=== PATIENT | female | born 1965 | race Caucasian/White ===

== ENCOUNTER 2020-08-11 10:20 | Emergency (ER) | payer OTHER ==
[~2020-08-11] VITALS: Ht 162.6 cm; Wt 90.9 kg
[2020-08-11] MEDS ORDERED: AZIT-21 PO (12:08)
== END 2020-08-11 12:35 | disposition home or self-care (01) ==
LOC: ER 10:21
DX: U07.1 COVID-19 (principal); J12.89 Other viral pneumonia; R05 Cough; J45.909 Unspecified asthma, uncomplicated
CPT/HCPCS: 36415; 71045; 87635; 99284

== ENCOUNTER 2020-08-14 12:37 | Inpatient (IN) | payer BC, OTHER ==
[~2020-08-14] VITALS: Ht 167.6 cm; Wt 82.0 kg
[~2020-08-14 12:37] MED LIST: AZIT-21 PO
--- NOTE | 2020-08-14 13:45 | NUR ---
SMOOTH PLATER MADE AWARE OF PT VSS AND NEED FOR ROOM. PROVIDER Vinicio CANTU PA INFORMED OF VSS AND PT BEING PLACE ON PORTABLE O2 4LNC TILL ROOM OPENS
[2020-08-14 15:02] LABS: BASOPHILS % (AUTO) 0.1 % (0-1); EOSINOPHILS % (AUTO) 0 % (0-6); HEMATOCRIT 41.8 % (35.0-45.0); HEMOGLOBIN 13.8 g/dl (12.0-16.0); LYMPHOCYTES # (AUTO) 0.3 X10'3 (1.1-4.8); LYMPHOCYTES % (AUTO) 4.2 % (21-51); MEAN CORPUSCULAR HEMOGLOBIN 30.9 PG (27.0-31.0); MEAN CORPUSCULAR HGB CONC 32.9 g/dL (33.0-36.5); MEAN CORPUSCULAR VOLUME 93.8 FL (78-98); MEAN PLATELET VOLUME 8.4 FL (7.4-10.4); MONOCYTES # (AUTO) 0.6 X10'3 (0-0.9); NEUTROPHILS # (AUTO) 6.7 X10'3 (1.8-7.7); NEUTROPHILS % (AUTO) 87.7 % (42-75); PLATELET COUNT 297 X10'3 (140-440); RED BLOOD COUNT 4.45 X10'6 (4.20-5.60); RED CELL DISTRIBUTION WIDTH 13.7 % (11.5-14.5); WHITE BLOOD COUNT 7.6 X10'3 (4.5-11.0)
[2020-08-14 15:08] LABS: D-DIMER 0.66 MG/L FEU (0-0.50)
[2020-08-14 15:11] LABS: ALANINE AMINOTRANSFERASE 61 U/L (12-78); ALBUMIN 3.1 G/DL (3.4-5.0); ALBUMIN/GLOBULIN RATIO 0.7 (1.1-1.5); ALKALINE PHOSPHATASE 102 IU/L (46-116); ANION GAP 10 (8-16); ASPARTATE AMINO TRANSFERASE 95 U/L (10-37); BILIRUBIN,TOTAL 0.5 MG/DL (0.1-1.0); BLOOD UREA NITROGEN 16 MG/DL (7-18); BUN/CREATININE RATIO 15.5 (6.6-38.0); CALCIUM 8.8 MG/DL (8.5-10.1); CHLORIDE 102 MMOL/L (99-107); CREATININE 1.03 MG/DL (0.40-0.90); GLUCOSE 119 MG/DL (70-104); POTASSIUM 3.7 MMOL/L (3.5-5.1); SODIUM 136 MMOL/L (135-145); TOTAL CARBON DIOXIDE 24.3 MMOL/L (24-32); TOTAL PROTEIN 7.7 G/DL (6.4-8.2); eGFR 56 ML/MIN
[2020-08-14 15:24] LABS: C-REACTIVE PROTEIN 9.86 MG/DL (0.0-0.5); FERRITIN 380 NG/ML (8-252); LACTATE DEHYDROGENASE 601 U/L (81-234)
[2020-08-14] MEDS ORDERED: dexamethasone sod phosphate 10mg/ml inj IV STA (15:30)
[2020-08-14] MEDS ORDERED: magnesium 2GM in 50ml NS 50 ML IV PRN (18:45)
[2020-08-14] MEDS ORDERED: magnesium Cl slow-release 64mg tablet PO PRN (18:45)
[2020-08-14] MEDS ORDERED: magnesium 4gm in 100ml NS 100 ML IV PRN (18:45)
[2020-08-14] MEDS ORDERED: potassium Cl 20 mEq SR tablet PO PRN ×2 (18:45)
[2020-08-14] MEDS ORDERED: potassium Cl 40MEQ/1/2NS 520ml 520 ML IV PRN ×2 (18:45)
[2020-08-14] MEDS ORDERED: mag hydrox/Alum hydrox/simeth 30ml oral suspension PO PRN (18:45)
[2020-08-14 19:08] LABS: HEMOGLOBIN A1C 6.2 % (4.5-6.2)
[2020-08-14] MEDS ORDERED: REMDESIVIR IV ONE (19:10)
[2020-08-14] MEDS ORDERED: NS IV ONE (19:10)
[2020-08-14] MEDS: normal saline 1000ml 1,000 ML IV SCH (19:21)
[2020-08-14] MEDS: K and/or MAG REPLACEMENT MC SCH (20:00)
[2020-08-14] MEDS: heparin, porcine 5000 units/ml vial SQ SCH (20:36)
[2020-08-14] MEDS: dexamethasone 4mg/ml inj IV SCH (20:37)
[2020-08-14 22:58] LABS: CLARITY,URINE CLEAR (Clear); COLOR,URINE YELLOW (Yellow); GLUCOSE, URINE NEGATIVE (Neg); KETONES,URINE 15 mg/dl (Neg); LEUKOCYTE ESTERASE ,URINE NEGATIVE (Neg); NITRITES, URINE NEGATIVE (Neg); OCCULT BLOOD,URINE LARGE (Neg); PROTEIN,URINE TRACE mg/dl (Neg); UROBILINOGEN,URINE 0.2 E.U/dL (0.2-1.0)
[2020-08-14 22:59] LABS: UA COLLECTION TYPE VOIDED
[2020-08-14 23:04] LABS: RBC,URINE 20-50 /HPF (0-2); WBC,URINE 0-4 /HPF (0-4)
[2020-08-14 23:05] LABS: BACTERIA,URINE 1+ /HPF (Neg); SQUAMOUS EPITHELIAL CELL,UR MANY /LPF (FEW)
--- NOTE | 2020-08-14 23:27 | NUR ---
paged hospitalist PAGER ID: [phone] MESSAGE: please call re ed bed 11 pt's o2 keeps going down to 86-89, pt is in no distress and is on 6L nc, will continue to monitor
--- NOTE | 2020-08-15 00:40 | NUR ---
pt placed on facemask with 10l 02 due to stats at 85-87, o2 came up to 89, will page hospitalist and continue to monitor
--- NOTE | 2020-08-15 00:41 | NUR ---
pt is in no distress at this time
--- NOTE | 2020-08-15 00:48 | NUR ---
HOSPITALIST CALLED BACK AND WAS MADE AWARE OF PT'S O2 SHE ORDERED RT TO COME AND EVALUATE PT SINCE O2 IS NOT IMPROVING ON FACEMASK ON 10L. WILL CONTINUE TO MONITOR
--- NOTE | 2020-08-15 01:05 | NUR ---
RT CAME TO EVALUATE PT AND PUT HER ON HIGH FLOW AT 12L PT STATING AT 90, WILL CONTINUE TO MONITOR
--- NOTE | 2020-08-15 03:33 | NUR ---
pt has been sleeping since i assumed care of her at 0130. i awoke her to take temp and assess her. she remains on 12 liter high flow o2 with sats 88-91%, RR 22-24. States tiredness and fatigue with any movement and getting oob is "exhausting" . she reports weakness and fall band placed and pt told to call for assist if getting oob to [facility]. Pt with 9out of 10 low back pain, :"probably from lying on the gurney earlier". afebrile. vs otherwise stable. nsr.
--- NOTE | 2020-08-15 03:48 | NUR ---
DR CALZADA UPDATED THAT PT REQUEST PAIN MEDS. SHE WILL ORDER HARPER
[2020-08-15] MEDS: diphenhydrAMINE 25mg capsule PO PRN (04:01)
[2020-08-15] MEDS: HYDROcodone/acetaminophen 5mg/325mg tablet PO PRN ×2 (04:01→15:50)
--- NOTE | 2020-08-15 04:06 | NUR ---
SBA to bsc, Pt given benedryl and norco (states she gets itchy when takes norco) for her back pain 04/18. Pt with persistant cough when sitting up on commode and sats noted to drop to 77% on 15L high flow O2. Assisted back to bed and told she should not get up to void again. placed on nrb at 15L and RT paged and criminal intelligence analyst in to evaluate. Over the next few min pt up to 84%. RT continuing pt on nrb 15L and aditionally placing 15L high flow O2. Sats now 97% and RR 26. Simpson catheter placed. Dr. Neal notified of events.
--- NOTE | 2020-08-15 06:05 | NUR ---
pts sats remain 95-96% on 15l high flow and 15l nrb mask. Pt with reduced pain to her back after admin of norco. afebrile.
[2020-08-15] MEDS: dexamethasone 4mg/ml inj IV SCH ×2 (08:32→19:48)
[2020-08-15] MEDS: REMDESIVIR 100MG inj. 100 MG in normal saline 100ml IV soln 100 ML IV SCH (08:40)
--- NOTE | 2020-08-15 08:44 | NUR ---
EMEKA IS PHYSICIAN 08/15
--- NOTE | 2020-08-15 08:45 | NUR ---
EMEKA IS PYSICIAN 08/15
[2020-08-15] MEDS: heparin, porcine 5000 units/ml vial SQ SCH ×2 (08:46→19:49)
[2020-08-15 08:53] LABS: BASOPHILS % (AUTO) 0.2 % (0-1); EOSINOPHILS % (AUTO) 0 % (0-6); HEMATOCRIT 37.3 % (35.0-45.0); HEMOGLOBIN 12.7 g/dl (12.0-16.0); LYMPHOCYTES # (AUTO) 0.3 X10'3 (1.1-4.8); LYMPHOCYTES % (AUTO) 4.8 % (21-51); MEAN CORPUSCULAR HEMOGLOBIN 31.4 PG (27.0-31.0); MEAN CORPUSCULAR VOLUME 92.4 FL (78-98); MEAN PLATELET VOLUME 7.6 FL (7.4-10.4); MONOCYTES # (AUTO) 0.5 X10'3 (0-0.9); MONOCYTES % (AUTO) 8.6 % (2-12); NEUTROPHILS # (AUTO) 5.4 X10'3 (1.8-7.7); NEUTROPHILS % (AUTO) 86.4 % (42-75); PLATELET COUNT 270 X10'3 (140-440); RED BLOOD COUNT 4.04 X10'6 (4.20-5.60); RED CELL DISTRIBUTION WIDTH 13.7 % (11.5-14.5); WHITE BLOOD COUNT 6.2 X10'3 (4.5-11.0)
[2020-08-15 09:06] LABS: ALANINE AMINOTRANSFERASE 54 U/L (12-78); ALBUMIN 2.5 G/DL (3.4-5.0); ALBUMIN/GLOBULIN RATIO 0.6 (1.1-1.5); ALKALINE PHOSPHATASE 86 IU/L (46-116); ANION GAP 10 (8-16); ASPARTATE AMINO TRANSFERASE 76 U/L (10-37); BILIRUBIN,TOTAL 0.3 MG/DL (0.1-1.0); BLOOD UREA NITROGEN 19 MG/DL (7-18); BUN/CREATININE RATIO 20.7 (6.6-38.0); CHLORIDE 108 MMOL/L (99-107); CHOL/HDL RATIO 2.8 (0.00-4.99); CHOLESTEROL 105 MG/DL (0-200); CREATININE 0.92 MG/DL (0.40-0.90); GLUCOSE 149 MG/DL (70-104); HDL CHOLESTEROL 37 MG/DL (35-60); LDL CHOLESTEROL 53 MG/DL (50-100); MAGNESIUM 2.7 MG/DL (1.5-2.4); PHOSPHORUS 3.9 MG/DL (2.3-4.5); POTASSIUM 4.1 MMOL/L (3.5-5.1); SODIUM 142 MMOL/L (135-145); TOTAL CARBON DIOXIDE 24.5 MMOL/L (24-32); TOTAL PROTEIN 6.6 G/DL (6.4-8.2); TRIGLYCERIDES 72 MG/DL (20-135); eGFR 64 ML/MIN
--- NOTE | 2020-08-15 10:53 | NUR ---
I have received report from Sean GAYLE RN and had the opportunity to ask questions. Will assume pt's care once on unit.
[2020-08-15] MEDS: benzonatate 100mg capsule PO SCH ×3 (11:21→23:24)
[2020-08-15] MEDS: normal saline 1000ml 1,000 ML IV SCH ×2 (11:38→23:30)
[2020-08-15 11:45] VITALS: BP 137/83
[2020-08-15] MEDS: K and/or MAG REPLACEMENT MC SCH ×2 (12:00→19:49)
--- NOTE | 2020-08-15 12:00 | NUR ---
Pt arrived to Ortho/Neuro unit at 1130 via hospital bed accompanied by hospital staff. Pt A&Ox4, O2 15L via nonrebreather mask in place, VSS, no c/o at this time, placed Tele on pt, pt oriented to room, pt questions answered, pt assessed. Will continue to monitor. Addendum: 08/15/20 at 1236 by Soniya Harvey RN F/C patent/secure draining clear yellow urine.
[2020-08-15 14:00] VITALS: BP 134/74
[2020-08-15 18:00] VITALS: BP 120/62
--- NOTE | 2020-08-15 18:14 | NUR ---
Problems reprioritized. Patient report given, questions answered & plan of care reviewed with Kathy MORALES.
--- NOTE | 2020-08-15 18:15 | NUR ---
Patient in room ORTHO 4010. I have received report from Becka MORALES and had the opportunity to ask questions and assume patient care.
[2020-08-15 22:00] VITALS: BP 139/85
[2020-08-16] MEDS: HYDROcodone/acetaminophen 5mg/325mg tablet PO PRN ×2 (01:56→21:19)
[2020-08-16 02:00] VITALS: BP 152/89
[2020-08-16 06:00] VITALS: BP 142/86
--- NOTE | 2020-08-16 06:33 | NUR ---
Problems reprioritized. Patient report given, questions answered & plan of care reviewed with Ml MORALES.
[2020-08-16] MEDS: K and/or MAG REPLACEMENT MC SCH ×2 (08:00→19:02)
[2020-08-16] MEDS: benzonatate 100mg capsule PO SCH ×3 (08:20→23:39)
[2020-08-16] MEDS: heparin, porcine 5000 units/ml vial SQ SCH ×2 (08:20→19:02)
[2020-08-16] MEDS: REMDESIVIR 100MG inj. 100 MG in normal saline 100ml IV soln 100 ML IV SCH (08:20)
[2020-08-16] MEDS: dexamethasone 4mg/ml inj IV SCH ×2 (08:20→19:02)
[2020-08-16 08:35] LABS: BASOPHILS % (AUTO) 0.3 % (0-1); EOSINOPHILS % (AUTO) 0 % (0-6); HEMOGLOBIN 13.3 g/dl (12.0-16.0); LYMPHOCYTES # (AUTO) 0.4 X10'3 (1.1-4.8); LYMPHOCYTES % (AUTO) 4.5 % (21-51); MEAN CORPUSCULAR HEMOGLOBIN 31.2 PG (27.0-31.0); MEAN CORPUSCULAR HGB CONC 33.3 g/dL (33.0-36.5); MEAN CORPUSCULAR VOLUME 93.6 FL (78-98); MEAN PLATELET VOLUME 7.9 FL (7.4-10.4); MONOCYTES # (AUTO) 0.8 X10'3 (0-0.9); MONOCYTES % (AUTO) 9.5 % (2-12); NEUTROPHILS # (AUTO) 7.4 X10'3 (1.8-7.7); NEUTROPHILS % (AUTO) 85.7 % (42-75); PLATELET COUNT 364 X10'3 (140-440); RED BLOOD COUNT 4.28 X10'6 (4.20-5.60); RED CELL DISTRIBUTION WIDTH 13.7 % (11.5-14.5); WHITE BLOOD COUNT 8.7 X10'3 (4.5-11.0)
[2020-08-16 08:50] LABS: D-DIMER 0.78 MG/L FEU (0-0.50)
[2020-08-16 09:18] LABS: ALANINE AMINOTRANSFERASE 100 U/L (12-78); ALBUMIN 2.4 G/DL (3.4-5.0); ALBUMIN/GLOBULIN RATIO 0.6 (1.1-1.5); ALKALINE PHOSPHATASE 91 IU/L (46-116); ANION GAP 10 (8-16); ASPARTATE AMINO TRANSFERASE 132 U/L (10-37); BILIRUBIN,TOTAL 0.4 MG/DL (0.1-1.0); BLOOD UREA NITROGEN 24 MG/DL (7-18); BUN/CREATININE RATIO 28.2 (6.6-38.0); C-REACTIVE PROTEIN 3.12 MG/DL (0.0-0.5); CALCIUM 7.8 MG/DL (8.5-10.1); CHLORIDE 110 MMOL/L (99-107); CREATININE 0.85 MG/DL (0.40-0.90); GLUCOSE 150 MG/DL (70-104); LACTATE DEHYDROGENASE 637 U/L (81-234); MAGNESIUM 2.7 MG/DL (1.5-2.4); PHOSPHORUS 3.7 MG/DL (2.3-4.5); SODIUM 144 MMOL/L (135-145); TOTAL CARBON DIOXIDE 23.7 MMOL/L (24-32); TOTAL PROTEIN 6.5 G/DL (6.4-8.2); eGFR 70 ML/MIN
[2020-08-16 10:00] VITALS: BP 159/90
[2020-08-16] MEDS: normal saline 1000ml 1,000 ML IV SCH ×2 (11:13→23:39)
--- NOTE | 2020-08-16 11:18 | NUR ---
Pt admit with acute respiratory failure from COVID-19 with bilateral viral pneumonia. Received TC from RN who reports pt unable to eat food secondary to admitting dx. Pt documented on HFNC. Pt on a regular diet documented with 50% PO intake first meal down to 25% and 0% at breakfast this morning. Recommend Ensure Enlive TID for optimal nutrition. Will continue to follow closely and monitor need for further nutrition intervention. Addendum: 08/16/20 at [address] Amended: Links added.
[2020-08-16] MEDS: lactose-reduced food (Ensure Enlive) - 237ml bottle PO SCH ×2 (12:45→18:02)
[2020-08-16 14:00] VITALS: BP 151/85
[2020-08-16 18:00] VITALS: BP 177/86
--- NOTE | 2020-08-16 18:21 | NUR ---
Patient in room ORTHO 4010. I have received report from Ml MORALES and had the opportunity to ask questions and assume patient care.
--- NOTE | 2020-08-16 18:29 | NUR ---
Problems reprioritized. Patient report given, questions answered & plan of care reviewed with Kathy MORALES.
[2020-08-16 22:00] VITALS: BP 166/94
[2020-08-17] VITALS (7 sets, daily range): BP systolic 156–170; BP diastolic 88–104
[2020-08-17] MEDS: hydrALAZINE 20mg/ml inj. IV PRN (02:32)
--- NOTE | 2020-08-17 06:30 | NUR ---
Patient in room ORTHO 4008. I have received report from CARMEN Chavez and had the opportunity to ask questions and assume patient care.
--- NOTE | 2020-08-17 06:40 | NUR ---
Problems reprioritized. Patient report given, questions answered & plan of care reviewed with Edna MORALES.
[2020-08-17] MEDS: benzonatate 100mg capsule PO SCH ×3 (07:19→23:26)
[2020-08-17] MEDS: dexamethasone 4mg/ml inj IV SCH ×2 (07:21→19:21)
[2020-08-17] MEDS: REMDESIVIR 100MG inj. 100 MG in normal saline 100ml IV soln 100 ML IV SCH (07:25)
[2020-08-17 07:58] LABS: BASOPHILS % (AUTO) 0 % (0-1); EOSINOPHILS % (AUTO) 0 % (0-6); HEMATOCRIT 39.7 % (35.0-45.0); HEMOGLOBIN 13.4 g/dl (12.0-16.0); LYMPHOCYTES # (AUTO) 0.2 X10'3 (1.1-4.8); LYMPHOCYTES % (AUTO) 1.8 % (21-51); MEAN CORPUSCULAR HEMOGLOBIN 31.5 PG (27.0-31.0); MEAN CORPUSCULAR HGB CONC 33.7 g/dL (33.0-36.5); MEAN CORPUSCULAR VOLUME 93.7 FL (78-98); MEAN PLATELET VOLUME 7.9 FL (7.4-10.4); MONOCYTES # (AUTO) 0.9 X10'3 (0-0.9); MONOCYTES % (AUTO) 9.8 % (2-12); NEUTROPHILS # (AUTO) 8.4 X10'3 (1.8-7.7); NEUTROPHILS % (AUTO) 88.4 % (42-75); PLATELET COUNT 395 X10'3 (140-440); RED BLOOD COUNT 4.24 X10'6 (4.20-5.60); RED CELL DISTRIBUTION WIDTH 13.6 % (11.5-14.5); WHITE BLOOD COUNT 9.5 X10'3 (4.5-11.0)
[2020-08-17] MEDS: lactose-reduced food (Ensure Enlive) - 237ml bottle PO SCH ×3 (08:00→18:00)
[2020-08-17] MEDS: K and/or MAG REPLACEMENT MC SCH ×2 (08:00→19:21)
[2020-08-17] MEDS: heparin, porcine 5000 units/ml vial SQ SCH ×2 (08:00→19:20)
[2020-08-17 08:02] LABS: ALANINE AMINOTRANSFERASE 200 U/L (12-78); ALBUMIN 2.3 G/DL (3.4-5.0); ALBUMIN/GLOBULIN RATIO 0.6 (1.1-1.5); ALKALINE PHOSPHATASE 103 IU/L (46-116); ANION GAP 9 (8-16); ASPARTATE AMINO TRANSFERASE 166 U/L (10-37); BILIRUBIN,TOTAL 0.6 MG/DL (0.1-1.0); BLOOD UREA NITROGEN 24 MG/DL (7-18); BUN/CREATININE RATIO 30.4 (6.6-38.0); CALCIUM 7.9 MG/DL (8.5-10.1); CHLORIDE 110 MMOL/L (99-107); CREATININE 0.79 MG/DL (0.40-0.90); GLUCOSE 162 MG/DL (70-104); LACTATE DEHYDROGENASE 631 U/L (81-234); MAGNESIUM 2.5 MG/DL (1.5-2.4); PHOSPHORUS 3.4 MG/DL (2.3-4.5); POTASSIUM 3.7 MMOL/L (3.5-5.1); SODIUM 144 MMOL/L (135-145); eGFR 76 ML/MIN
--- NOTE | 2020-08-17 11:57 | NUR ---
notified. PAGER ID: [phone] MESSAGE: RE; [phone]. Ching Durán. Patient is allergic to iodine contrast. Needs Prep before going to CT. Edna Jaimes [phone] Addendum: 08/17/20 at 1239 by Edna Wiley RN Dr. Workman ordered the Exam to be given tomorrow AM. Patient to be pre-medicated for Iodine allergy protocol. Orders placed, per Dr. Workman.
[2020-08-17] MEDS: normal saline 1000ml 1,000 ML IV SCH (14:00)
[2020-08-17] MEDS: HYDROcodone/acetaminophen 5mg/325mg tablet PO PRN (16:32)
--- NOTE | 2020-08-17 18:11 | NUR ---
Problems reprioritized. Patient report given, questions answered & plan of care reviewed with Kathy MORALES.
--- NOTE | 2020-08-17 18:11 | NUR ---
Patient in room ORTHO 4010. I have received report from Edna MORALES and had the opportunity to ask questions and assume patient care.
[2020-08-17] MEDS: guaiFENesin/codeine phos 10ml UD oral syrup PO PRN (19:21)
[2020-08-17] MEDS: prednisone 10mg tablet PO PRN (19:58)
[2020-08-18] MEDS: guaiFENesin/codeine phos 10ml UD oral syrup PO PRN ×2 (01:04→20:03)
[2020-08-18] MEDS: normal saline 1000ml 1,000 ML IV SCH ×2 (01:04→18:25)
[2020-08-18 02:00] VITALS: BP 144/85
[2020-08-18] MEDS: LORazepam 2 mg/ml vial IV PRN (02:03)
[2020-08-18] MEDS: prednisone 10mg tablet PO PRN (02:03)
[2020-08-18 06:00] VITALS: BP 150/94
--- NOTE | 2020-08-18 06:32 | NUR ---
Problems reprioritized. Patient report given, questions answered & plan of care reviewed with Millie MORALES.
[2020-08-18] MEDS: K and/or MAG REPLACEMENT MC SCH ×2 (08:00→20:00)
[2020-08-18] MEDS ORDERED: diphenhydrAMINE 25mg capsule PO ONE (08:00)
[2020-08-18 08:23] LABS: BASOPHILS % (AUTO) 0.2 % (0-1); EOSINOPHILS % (AUTO) 0 % (0-6); HEMATOCRIT 39.9 % (35.0-45.0); HEMOGLOBIN 13.6 g/dl (12.0-16.0); LYMPHOCYTES # (AUTO) 0.2 X10'3 (1.1-4.8); LYMPHOCYTES % (AUTO) 1.6 % (21-51); MEAN CORPUSCULAR HEMOGLOBIN 31.7 PG (27.0-31.0); MEAN CORPUSCULAR VOLUME 93.1 FL (78-98); MEAN PLATELET VOLUME 7.8 FL (7.4-10.4); MONOCYTES % (AUTO) 6.9 % (2-12); NEUTROPHILS # (AUTO) 13.2 X10'3 (1.8-7.7); NEUTROPHILS % (AUTO) 91.3 % (42-75); PLATELET COUNT 435 X10'3 (140-440); RED BLOOD COUNT 4.29 X10'6 (4.20-5.60); RED CELL DISTRIBUTION WIDTH 13.4 % (11.5-14.5); WHITE BLOOD COUNT 14.5 X10'3 (4.5-11.0)
[2020-08-18] MEDS: dexamethasone 4mg/ml inj IV SCH ×2 (08:25→19:49)
[2020-08-18] MEDS: benzonatate 100mg capsule PO SCH ×2 (08:26→23:24)
[2020-08-18] MEDS: REMDESIVIR 100MG inj. 100 MG in normal saline 100ml IV soln 100 ML IV SCH (08:26)
[2020-08-18] MEDS: lactose-reduced food (Ensure Enlive) - 237ml bottle PO SCH ×2 (08:26→18:00)
[2020-08-18 08:27] LABS: ALANINE AMINOTRANSFERASE 184 U/L (12-78); ALBUMIN 2.3 G/DL (3.4-5.0); ALBUMIN/GLOBULIN RATIO 0.6 (1.1-1.5); ANION GAP 8 (8-16); ASPARTATE AMINO TRANSFERASE 94 U/L (10-37); BILIRUBIN,TOTAL 0.5 MG/DL (0.1-1.0); BLOOD UREA NITROGEN 21 MG/DL (7-18); C-REACTIVE PROTEIN 1.16 MG/DL (0.0-0.5); CALCIUM 7.6 MG/DL (8.5-10.1); CHLORIDE 107 MMOL/L (99-107); CREATININE 0.75 MG/DL (0.40-0.90); GLUCOSE 159 MG/DL (70-104); LACTATE DEHYDROGENASE 752 U/L (81-234); MAGNESIUM 2.5 MG/DL (1.5-2.4); PHOSPHORUS 3.5 MG/DL (2.3-4.5); POTASSIUM 4.1 MMOL/L (3.5-5.1); SODIUM 143 MMOL/L (135-145); TOTAL CARBON DIOXIDE 28.4 MMOL/L (24-32); TOTAL PROTEIN 6.1 G/DL (6.4-8.2); eGFR 81 ML/MIN
[2020-08-18] MEDS: heparin, porcine 5000 units/ml vial SQ SCH ×2 (08:27→19:48)
[2020-08-18 09:02] LABS: ALKALINE PHOSPHATASE 107 IU/L (46-116)
[2020-08-18 10:00] VITALS: BP 164/96
[2020-08-18] MEDS ORDERED: iohexol 350MG/ML 100ml bottle IV ONE (11:38)
[2020-08-18 14:00] VITALS: BP 150/83
[2020-08-18 18:00] VITALS: BP 154/96
--- NOTE | 2020-08-18 18:20 | NUR ---
Patient in room ORTHO 4010. I have received report from CARMEN Pinto and had the opportunity to ask questions and assume patient care.
[2020-08-18 22:00] VITALS: BP 155/87
[2020-08-19 02:00] VITALS: BP 146/79
[2020-08-19] MEDS: normal saline 1000ml 1,000 ML IV SCH ×2 (03:39→19:34)
[2020-08-19 06:00] VITALS: BP 143/92
--- NOTE | 2020-08-19 06:12 | NUR ---
Problems reprioritized. Patient report given, questions answered & plan of care reviewed with CARMEN Pinto.
[2020-08-19] MEDS: guaiFENesin/codeine phos 10ml UD oral syrup PO PRN ×2 (08:07→19:34)
[2020-08-19] MEDS: dexamethasone 4mg/ml inj IV SCH ×2 (08:11→19:35)
[2020-08-19] MEDS: benzonatate 100mg capsule PO SCH ×3 (08:13→23:31)
[2020-08-19] MEDS: heparin, porcine 5000 units/ml vial SQ SCH ×2 (08:14→19:35)
[2020-08-19] MEDS: K and/or MAG REPLACEMENT MC SCH ×2 (08:30→20:00)
[2020-08-19 08:36] LABS: BASOPHILS # (AUTO) 0.1 X10'3 (0-0.2); BASOPHILS % (AUTO) 0.5 % (0-1); EOSINOPHILS % (AUTO) 0 % (0-6); HEMATOCRIT 39.8 % (35.0-45.0); HEMOGLOBIN 13.3 g/dl (12.0-16.0); LYMPHOCYTES # (AUTO) 0.3 X10'3 (1.1-4.8); LYMPHOCYTES % (AUTO) 1.6 % (21-51); MEAN CORPUSCULAR HEMOGLOBIN 30.8 PG (27.0-31.0); MEAN CORPUSCULAR HGB CONC 33.4 g/dL (33.0-36.5); MEAN CORPUSCULAR VOLUME 92.3 FL (78-98); MEAN PLATELET VOLUME 7.6 FL (7.4-10.4); MONOCYTES % (AUTO) 5.7 % (2-12); NEUTROPHILS # (AUTO) 16.2 X10'3 (1.8-7.7); NEUTROPHILS % (AUTO) 92.2 % (42-75); PLATELET COUNT 473 X10'3 (140-440); RED BLOOD COUNT 4.31 X10'6 (4.20-5.60); RED CELL DISTRIBUTION WIDTH 13.5 % (11.5-14.5); WHITE BLOOD COUNT 17.5 X10'3 (4.5-11.0)
[2020-08-19] MEDS: lactose-reduced food (Ensure Enlive) - 237ml bottle PO SCH ×2 (08:36→18:00)
[2020-08-19 08:46] LABS: D-DIMER 1.72 MG/L FEU (0-0.50)
[2020-08-19 09:24] LABS: ALANINE AMINOTRANSFERASE 125 U/L (12-78); ALBUMIN 2.3 G/DL (3.4-5.0); ALBUMIN/GLOBULIN RATIO 0.6 (1.1-1.5); ALKALINE PHOSPHATASE 108 IU/L (46-116); ANION GAP 9 (8-16); ASPARTATE AMINO TRANSFERASE 61 U/L (10-37); BILIRUBIN,TOTAL 0.6 MG/DL (0.1-1.0); BLOOD UREA NITROGEN 21 MG/DL (7-18); C-REACTIVE PROTEIN 2.89 MG/DL (0.0-0.5); CALCIUM 8.2 MG/DL (8.5-10.1); CHLORIDE 108 MMOL/L (99-107); GLUCOSE 146 MG/DL (70-104); LACTATE DEHYDROGENASE 833 U/L (81-234); MAGNESIUM 2.6 MG/DL (1.5-2.4); PHOSPHORUS 3.5 MG/DL (2.3-4.5); SODIUM 142 MMOL/L (135-145); TOTAL CARBON DIOXIDE 25.5 MMOL/L (24-32); TOTAL PROTEIN 5.9 G/DL (6.4-8.2); eGFR 88 ML/MIN
[2020-08-19 10:00] VITALS: BP 147/92
--- NOTE | 2020-08-19 12:32 | NUR ---
Initial: Pt admit DX acute respiratory failure from COVID-19 with bilateral pneumonia currently on high malka per EMR. PO fluctuates but slightly improving ~75-100% avg ensure enlives TIDWM w/ PO 50% breakfast this AM up from refusing meals past 2 days. LBM 1/5 without bowel care this admit; ABILIO d/w RN regarding routine bowel care if MD agreeable. Will continue to monitor for PO acceptance and additional protein needs. Rec: 1. continue regular diet; encourage PO 2. ensure enlive TIDWM 3. routine bowel care; 6 days constipation 4. scaled wt this admit Addendum: 08/19/20 at [address] Amended: Links added.
[2020-08-19 14:00] VITALS: BP 142/70
--- NOTE | 2020-08-19 14:32 | NUR ---
paged RT to see patient, she keeps desating into upper 70's with 15NR and 15L HF
[2020-08-19] MEDS: ALBUTEROL INHALER 1 PUFF/90 MCG INHALER IH PRN (15:22)
--- NOTE | 2020-08-19 15:50 | NUR ---
PAGER ID: [phone] MESSAGE: [phone] Luis Armando eason RT request order for ABG please [phone] NATALIE
[2020-08-19 17:02] LABS: ABG BASE EXCESS 1.4 mmol/L (-2.0-2.0); ABG HCO3 23.9 mmol/L (22.0-26.0); ABG OXYGEN SATURATION 93.5 % (94-97); ABG PCO2 (T) 31.7 mmHg (32.0-45.0); ABG PO2 (T) 66.8 mmHg (75.0-100.0); ALLEN'S TEST POSITIVE; FCOHb 0.4 % (0.0-3.9); FLOW 40 L/min; FMetHb 0.1 % (0.0-1.5); TOTAL HEMOGLOBIN 14.2 G/dl (12.0-16.0)
[2020-08-19 18:00] VITALS: BP 149/80
--- NOTE | 2020-08-19 18:15 | NUR ---
Patient in room ORTHO 4010. I have received report from CARMEN Pinto and had the opportunity to ask questions and assume patient care.
[2020-08-19 22:00] VITALS: BP 166/96
[2020-08-20 02:00] VITALS: BP 160/95
[2020-08-20] MEDS: HYDROcodone/acetaminophen 5mg/325mg tablet PO PRN (04:42)
[2020-08-20 06:00] VITALS: BP 139/111
[2020-08-20] MEDS: K and/or MAG REPLACEMENT MC SCH ×2 (08:00→20:00)
[2020-08-20] MEDS: heparin, porcine 5000 units/ml vial SQ SCH ×2 (08:09→21:33)
[2020-08-20] MEDS: guaiFENesin/codeine phos 10ml UD oral syrup PO PRN (08:11)
[2020-08-20] MEDS: dexamethasone 4mg/ml inj IV SCH (08:11)
[2020-08-20] MEDS: benzonatate 100mg capsule PO SCH ×3 (08:12→23:21)
[2020-08-20] MEDS: normal saline 1000ml 1,000 ML IV SCH ×2 (08:29→21:33)
[2020-08-20] MEDS: lactose-reduced food (Ensure Enlive) - 237ml bottle PO SCH ×3 (08:29→18:00)
[2020-08-20 08:44] LABS: C-REACTIVE PROTEIN 5.74 MG/DL (0.0-0.5)
[2020-08-20 08:46] LABS: D-DIMER 1.81 MG/L FEU (0-0.50)
[2020-08-20 10:00] VITALS: BP 160/86
[2020-08-20 14:00] VITALS: BP_SYST 160; BP_SYST 179; BP_DIAS 84; BP_DIAS 86
[2020-08-20] MEDS ORDERED: methylPREDNISolone sod succ 125mg/2ml vial IV ONE (16:00)
[2020-08-20 18:00] VITALS: BP 160/88
--- NOTE | 2020-08-20 18:52 | NUR ---
Patient in room ORTHO 4010. I have received report from Millie MORALES and had the opportunity to ask questions and assume patient care.
[2020-08-20] MEDS: guaiFENesin/codeine phos 10ml UD oral syrup PO SCH ×2 (21:32→23:21)
[2020-08-20] MEDS: Melatonin 3mg tablet PO SCH (21:32)
[2020-08-20 22:00] VITALS: BP 162/92
[2020-08-20] MEDS: LORazepam 2 mg/ml vial IV PRN (23:18)
[2020-08-20] MEDS: methylPREDNISolone sod succ 125mg/2ml vial IV SCH (23:21)
--- NOTE | 2020-08-20 23:23 | NUR ---
RT called due to pt's spo2 maintaining at 85%, sometimes lower. Pt is already on 100% via HVNI plus a non-rebreather mask. RN, Julienne Arias was able to get telephone order for bipap from Dr. Saldana. RN to page when they are ready for me to bring Bipap up for pt. They are having to move pt's rooms to accommodate. Will place pt on bipap rose marie.
--- NOTE | 2020-08-21 01:30 | NUR ---
Pt. Not tolerating the High Flow on 40L at 100% FIO2 and a Non-rebreather at 15L pt. is at 85% and lower at times. Paged Respiratory, Bipap was recommended as our next option. was paged and orders were received to place pt. on Bipap. Pt. was transferred to a negative pressure room and placed on Bipap. Her Oxygen went up to 92% after being placed on Bipap. Pt. was educated about how the mask works and how to take it off if needed. Will continue to monitor pt.
--- NOTE | 2020-08-21 01:49 | NUR ---
Pt transported to room 4006, from 4010 then placed on bipap with RN at bedside. Spo2 now at 92% with bipap. Will cont to monitor Addendum: 08/21/20 at 0150 by Ingrid Funes RT Amended: Links added.
[2020-08-21] MEDS: LORazepam 2 mg/ml vial IV PRN ×2 (03:15→23:11)
[2020-08-21] MEDS: guaiFENesin/codeine phos 10ml UD oral syrup PO SCH ×6 (03:16→23:11)
[2020-08-21 06:00] VITALS: BP 165/104
--- NOTE | 2020-08-21 06:31 | NUR ---
Problems reprioritized. Patient report given, questions answered & plan of care reviewed with Liliana MORALES.
[2020-08-21] MEDS: benzonatate 100mg capsule PO SCH ×3 (07:40→23:11)
[2020-08-21] MEDS: methylPREDNISolone sod succ 125mg/2ml vial IV SCH ×3 (07:40→23:11)
[2020-08-21] MEDS: heparin, porcine 5000 units/ml vial SQ SCH ×2 (07:41→20:08)
[2020-08-21] MEDS: lactose-reduced food (Ensure Enlive) - 237ml bottle PO SCH ×3 (07:42→18:30)
[2020-08-21] MEDS: ALBUTEROL INHALER 1 PUFF/90 MCG INHALER IH PRN (08:00)
[2020-08-21] MEDS: K and/or MAG REPLACEMENT MC SCH ×3 (08:00→20:00)
[2020-08-21 09:44] LABS: D-DIMER 1.26 MG/L FEU (0-0.50)
[2020-08-21 10:00] VITALS: BP 143/92
[2020-08-21] MEDS: normal saline 1000ml 1,000 ML IV SCH ×2 (10:45→23:30)
[2020-08-21] MEDS ORDERED: magnesium 4gm in 100ml NS 100 ML IV PRN (10:55)
[2020-08-21] MEDS ORDERED: potassium Cl 20 mEq SR tablet PO PRN ×2 (10:55)
[2020-08-21] MEDS ORDERED: potassium Cl 40MEQ/1/2NS 520ml 520 ML IV PRN (10:55)
[2020-08-21] MEDS ORDERED: magnesium Cl slow-release 64mg tablet PO PRN (10:55)
[2020-08-21 14:00] VITALS: BP 143/92
--- NOTE | 2020-08-21 16:39 | NUR ---
PAGER ID: [phone] MESSAGE: Liliana [email or web address] eben Durán- did you want to send another UA? Urine is also foul smelling
[2020-08-21 18:00] VITALS: BP 144/96
[2020-08-21 18:27] LABS: CLARITY,URINE CLOUDY (Clear); COLOR,URINE YELLOW (Yellow); GLUCOSE, URINE NEGATIVE (Neg); KETONES,URINE NEGATIVE (Neg); LEUKOCYTE ESTERASE ,URINE SMALL (Neg); NITRITES, URINE POSITIVE (Neg); OCCULT BLOOD,URINE LARGE (Neg); PH,URINE >=9.0 (4.8-8.0); PROTEIN,URINE 30 mg/dl (Neg)
[2020-08-21 18:34] LABS: UA COLLECTION TYPE FOLEY CATH
[2020-08-21 18:37] LABS: BACTERIA,URINE 4+ /HPF (Neg); SQUAMOUS EPITHELIAL CELL,UR FEW /LPF (FEW)
[2020-08-21 18:40] LABS: AMMONIUM BIURATE CRYSTALS 3+ /HPF (NEGATIVE); TRIPLE PHOSPHATE CRYST 3+ /HPF (NEGATIVE)
--- NOTE | 2020-08-21 18:42 | NUR ---
PAGER ID: [phone] MESSAGE: Lilianarenny Rock9 eben Gross- UA is positive for nitrites and leukocyte esterase, temp 100.1 ax. Addendum: 08/21/20 at 1853 by Myrna Boyd RN orders received from for IV Rocephin now and daily thereafter
--- NOTE | 2020-08-21 19:30 | NUR ---
Patient in room ORTHO 4006. I have received report from Rachel MORALES and had the opportunity to ask questions and assume patient care.
[2020-08-21] MEDS: Melatonin 3mg tablet PO SCH (20:08)
[2020-08-21] MEDS: CefTRIAXone/D5W-Rocephin 1gm 50 ML IV SCH (20:08)
[2020-08-21 22:00] VITALS: BP 133/84
--- NOTE | 2020-08-22 01:45 | NUR ---
I Received a new order tonight for a code status change from Full to DNR. I had not spoke with or heard from any MD regarding why this was being changed. I spoke with my Charge and with the patient. The patient stated she spoke with the MD Workman the other day regarding not wanting intubation, but that she never said she wanted to be a DNR. I explained everything that a FULL Code, Limited Code and DNR code represent. She is very adamant about not wanting intubation but she does want Meds and Chest compressions. Dr. Wright returned my page that i sent inquiring about the code change that DR. Bermudez put in late this evening. Dr. Wright stated that because she has not seen this patient or does now know the patient she is not comfortable changing their code status and that the day shift MD for 08/22/2020 needs to deal with speaking to the pt as well as adjusting the orders. I asked Dr Wright what she wants me to do if the patient is to take a turn for the worse this shift, she stated that we would james the limited code that the pt has requested. Pt is stable right now, A&O, vitals WNL and no complaints of pain or discomfort at this time. Will continue to monitor.
[2020-08-22 02:00] VITALS: BP 129/82
--- NOTE | 2020-08-22 02:10 | NUR ---
Notified: PAGER ID: [phone] MESSAGE: RM [phone] Ching Durán full code at the start of my shift. New orders from Lara johnson to change Code to DNR, pt has stated to me that she does not want to be a DNR, she wants Limited code status w/ no intubation, CPR and meds ok. [id number] Addendum: 08/22/20 at 6934 by Zuleika Coats RN incorrect time entry - was paged at [phone]
[2020-08-22] MEDS: guaiFENesin/codeine phos 10ml UD oral syrup PO SCH ×6 (03:31→23:53)
[2020-08-22 06:00] VITALS: BP 136/89
--- NOTE | 2020-08-22 07:08 | NUR ---
Problems reprioritized. Patient report given, questions answered & plan of care reviewed with Garry MORALES.
[2020-08-22] MEDS: lactose-reduced food (Ensure Enlive) - 237ml bottle PO SCH ×2 (08:00→18:00)
[2020-08-22] MEDS: CefTRIAXone/D5W-Rocephin 1gm 50 ML IV SCH (08:00)
[2020-08-22] MEDS: benzonatate 100mg capsule PO SCH ×3 (08:00→23:53)
[2020-08-22] MEDS: methylPREDNISolone sod succ 125mg/2ml vial IV SCH ×3 (08:00→23:53)
[2020-08-22] MEDS: enoxaparin 40mg/0.4ml syringe SUBCUT SCH ×2 (08:15→20:41)
[2020-08-22 08:18] LABS: BASOPHILS # (AUTO) 0.1 X10'3 (0-0.2); BASOPHILS % (AUTO) 0.3 % (0-1); EOSINOPHILS % (AUTO) 0 % (0-6); HEMATOCRIT 38.5 % (35.0-45.0); HEMOGLOBIN 12.6 g/dl (12.0-16.0); LYMPHOCYTES # (AUTO) 0.2 X10'3 (1.1-4.8); MEAN CORPUSCULAR HEMOGLOBIN 30.7 PG (27.0-31.0); MEAN CORPUSCULAR HGB CONC 32.9 g/dL (33.0-36.5); MEAN CORPUSCULAR VOLUME 93.3 FL (78-98); MEAN PLATELET VOLUME 7.6 FL (7.4-10.4); MONOCYTES % (AUTO) 5.3 % (2-12); NEUTROPHILS # (AUTO) 17.2 X10'3 (1.8-7.7); NEUTROPHILS % (AUTO) 93.4 % (42-75); PLATELET COUNT 458 X10'3 (140-440); RED BLOOD COUNT 4.12 X10'6 (4.20-5.60); WHITE BLOOD COUNT 18.4 X10'3 (4.5-11.0)
[2020-08-22 08:37] LABS: D-DIMER 1.58 MG/L FEU (0-0.50)
[2020-08-22 08:38] LABS: ALANINE AMINOTRANSFERASE 63 U/L (12-78); ALBUMIN 1.8 G/DL (3.4-5.0); ALBUMIN/GLOBULIN RATIO 0.5 (1.1-1.5); ALKALINE PHOSPHATASE 117 IU/L (46-116); ANION GAP 8 (8-16); ASPARTATE AMINO TRANSFERASE 34 U/L (10-37); BILIRUBIN,TOTAL 0.4 MG/DL (0.1-1.0); BLOOD UREA NITROGEN 26 MG/DL (7-18); BUN/CREATININE RATIO 37.1 (6.6-38.0); CALCIUM 8.7 MG/DL (8.5-10.1); CHLORIDE 107 MMOL/L (99-107); GLUCOSE 174 MG/DL (70-104); MAGNESIUM 2.6 MG/DL (1.5-2.4); PHOSPHORUS 3.7 MG/DL (2.3-4.5); POTASSIUM 4.5 MMOL/L (3.5-5.1); SODIUM 142 MMOL/L (135-145); TOTAL CARBON DIOXIDE 26.7 MMOL/L (24-32); TOTAL PROTEIN 5.7 G/DL (6.4-8.2); eGFR 88 ML/MIN
[2020-08-22] MEDS: diphenhydrAMINE 25mg capsule PO PRN (09:33)
[2020-08-22 10:00] VITALS: BP 136/79
[2020-08-22] MEDS ORDERED: furosemide 20 MG/2 ML vial IV ONE (10:35)
--- NOTE | 2020-08-22 12:13 | NUR ---
clarified patient code status with patient. educated her on the meaning of DNR. states she understands and would like to be kept DNR. Patient aox4.
[2020-08-22] MEDS: HYDROcodone/acetaminophen 5mg/325mg tablet PO PRN ×2 (13:23→21:04)
--- NOTE | 2020-08-22 13:33 | NUR ---
Reassessment: Pt currently bipap dependent only taking sips of ensures and barely eating meals per RN today. PO 0-25% avg meals w/ refusals past 7 days not meeting needs. ABILIO [email or web address] regarding supplemental nutrition support given prolonged poor PO, bipap dependence, and protein/kcal needs. Pt would benefit from corpak to meet nutrition needs w/ ONS supplemental since still drinking some of ensure each day but sole nutrition would be met via corpak. TF recs below if MD agreeable w/ alternative nutrition; using IBW given no scaled wt at this time. CRP up to 4.5 from 1.16 prior and last LDH 08/20 902 increasing. LBM 08/20. Will continue to monitor. Rec: 1. continue regular diet; encourage PO 2. ensure enlive TIDWM; encourage PO 3. routine bowel care 4. IF corpak for nutrition; recommend Vital AF at 60ml/hr goal to provide 1440ml volume, 1728 kcals, 1166ml free water, and 108g protein. 5. IF TF; water flush 200ml Q4 6. IF TF; PALB Q M/Th; daily wts 7. scaled wt this admit Addendum: 08/22/20 at [address] Amended: Links added.
[2020-08-22 14:00] VITALS: BP 146/96
[2020-08-22 18:00] VITALS: BP 148/74
--- NOTE | 2020-08-22 18:18 | NUR ---
Patient in room ORTHO 4006. I have received report from CARMEN Castañeda and had the opportunity to ask questions and assume patient care.
--- NOTE | 2020-08-22 18:26 | NUR ---
SBAR REPORT GIVEN TO DUY MORALES, EMAR REVIEWED, QUESTIONS ANSWERED.
[2020-08-22] MEDS: K and/or MAG REPLACEMENT MC SCH ×2 (19:38→19:39)
[2020-08-22] MEDS: lactobacillus rhamnosus 10,000 MMU CELLS/CAPSULE PO SCH (20:41)
[2020-08-22] MEDS: Melatonin 3mg tablet PO SCH (20:41)
[2020-08-22 22:00] VITALS: BP 149/82
[2020-08-22] MEDS: LORazepam 2 mg/ml vial IV PRN (23:22)
[2020-08-23] VITALS (8 sets, daily range): BP systolic 133–170; BP diastolic 37–117
[2020-08-23] MEDS: guaiFENesin/codeine phos 10ml UD oral syrup PO SCH ×7 (04:36→23:24)
[2020-08-23 06:34] LABS: BASOPHILS % (AUTO) 0.1 % (0-1); EOSINOPHILS % (AUTO) 0 % (0-6); HEMOGLOBIN 12.9 g/dl (12.0-16.0); LYMPHOCYTES # (AUTO) 0.2 X10'3 (1.1-4.8); LYMPHOCYTES % (AUTO) 1.1 % (21-51); MEAN CORPUSCULAR HEMOGLOBIN 30.9 PG (27.0-31.0); MEAN CORPUSCULAR VOLUME 93.7 FL (78-98); MEAN PLATELET VOLUME 7.6 FL (7.4-10.4); MONOCYTES # (AUTO) 0.6 X10'3 (0-0.9); MONOCYTES % (AUTO) 3.8 % (2-12); NEUTROPHILS # (AUTO) 16.2 X10'3 (1.8-7.7); PLATELET COUNT 411 X10'3 (140-440); RED BLOOD COUNT 4.16 X10'6 (4.20-5.60); RED CELL DISTRIBUTION WIDTH 13.5 % (11.5-14.5); WHITE BLOOD COUNT 17.1 X10'3 (4.5-11.0)
--- NOTE | 2020-08-23 06:39 | NUR ---
Problems reprioritized. Patient report given, questions answered & plan of care reviewed with CARMEN Ford.
[2020-08-23 06:42] LABS: D-DIMER 1.36 MG/L FEU (0-0.50)
[2020-08-23 06:54] LABS: ALANINE AMINOTRANSFERASE 67 U/L (12-78); ALBUMIN 1.9 G/DL (3.4-5.0); ALBUMIN/GLOBULIN RATIO 0.5 (1.1-1.5); ALKALINE PHOSPHATASE 134 IU/L (46-116); ANION GAP 7 (8-16); ASPARTATE AMINO TRANSFERASE 35 U/L (10-37); BILIRUBIN,TOTAL 0.5 MG/DL (0.1-1.0); BLOOD UREA NITROGEN 31 MG/DL (7-18); BUN/CREATININE RATIO 38.3 (6.6-38.0); C-REACTIVE PROTEIN 2.62 MG/DL (0.0-0.5); CALCIUM 8.2 MG/DL (8.5-10.1); CHLORIDE 107 MMOL/L (99-107); CREATININE 0.81 MG/DL (0.40-0.90); GLUCOSE 186 MG/DL (70-104); MAGNESIUM 2.6 MG/DL (1.5-2.4); PHOSPHORUS 4.1 MG/DL (2.3-4.5); POTASSIUM 4.3 MMOL/L (3.5-5.1); SODIUM 142 MMOL/L (135-145); TOTAL CARBON DIOXIDE 28.3 MMOL/L (24-32); eGFR 74 ML/MIN
[2020-08-23] MEDS: lactose-reduced food (Ensure Enlive) - 237ml bottle PO SCH ×3 (08:00→18:06)
[2020-08-23] MEDS: K and/or MAG REPLACEMENT MC SCH ×4 (08:00→20:00)
--- NOTE | 2020-08-23 09:50 | NUR ---
med given on days yesterday
[2020-08-23] MEDS: methylPREDNISolone sod succ 125mg/2ml vial IV SCH ×3 (09:58→23:05)
[2020-08-23] MEDS: CefTRIAXone/D5W-Rocephin 1gm 50 ML IV SCH (09:58)
[2020-08-23] MEDS: benzonatate 100mg capsule PO SCH ×4 (09:59→23:24)
[2020-08-23] MEDS: enoxaparin 40mg/0.4ml syringe SUBCUT SCH ×2 (09:59→21:43)
[2020-08-23] MEDS: lactobacillus rhamnosus 10,000 MMU CELLS/CAPSULE PO SCH ×2 (09:59→21:44)
--- NOTE | 2020-08-23 16:39 | NUR ---
5f dual lumen picc placed to the right basilic vein x's 1 attempt with success using ultrasound guidance, both lumens aspirate blood and flush without difficulty. initial tip location; distal svc near cavoatrial junction. ref [id number] exp 2021-06-08
[2020-08-23] MEDS ORDERED: furosemide 20 MG/2 ML vial IV ONE (21:30)
[2020-08-23] MEDS: Melatonin 3mg tablet PO SCH (21:44)
[2020-08-23] MEDS: hydrALAZINE 20mg/ml inj. IV PRN (22:37)
[2020-08-23] MEDS: LORazepam 2 mg/ml vial IV PRN (23:03)
[2020-08-24] VITALS (7 sets, daily range): BP systolic 148–161; BP diastolic 83–102
[2020-08-24] MEDS: guaiFENesin/codeine phos 10ml UD oral syrup PO SCH ×5 (04:09→21:08)
[2020-08-24 06:03] LABS: BASOPHILS % (AUTO) 0.2 % (0-1); EOSINOPHILS % (AUTO) 0.1 % (0-6); HEMATOCRIT 39.1 % (35.0-45.0); HEMOGLOBIN 12.9 g/dl (12.0-16.0); LYMPHOCYTES # (AUTO) 0.2 X10'3 (1.1-4.8); LYMPHOCYTES % (AUTO) 1.1 % (21-51); MEAN CORPUSCULAR HEMOGLOBIN 30.4 PG (27.0-31.0); MEAN CORPUSCULAR HGB CONC 32.9 g/dL (33.0-36.5); MEAN CORPUSCULAR VOLUME 92.5 FL (78-98); MEAN PLATELET VOLUME 7.8 FL (7.4-10.4); MONOCYTES # (AUTO) 0.8 X10'3 (0-0.9); NEUTROPHILS # (AUTO) 14.6 X10'3 (1.8-7.7); NEUTROPHILS % (AUTO) 93.6 % (42-75); PLATELET COUNT 350 X10'3 (140-440); RED BLOOD COUNT 4.23 X10'6 (4.20-5.60); RED CELL DISTRIBUTION WIDTH 13.8 % (11.5-14.5); WHITE BLOOD COUNT 15.6 X10'3 (4.5-11.0)
[2020-08-24 06:16] LABS: ALANINE AMINOTRANSFERASE 64 U/L (12-78); ALBUMIN/GLOBULIN RATIO 0.5 (1.1-1.5); ALKALINE PHOSPHATASE 136 IU/L (46-116); ANION GAP 5 (8-16); ASPARTATE AMINO TRANSFERASE 28 U/L (10-37); BILIRUBIN,TOTAL 0.4 MG/DL (0.1-1.0); BLOOD UREA NITROGEN 32 MG/DL (7-18); BUN/CREATININE RATIO 39.5 (6.6-38.0); C-REACTIVE PROTEIN 1.33 MG/DL (0.0-0.5); CHLORIDE 106 MMOL/L (99-107); CREATININE 0.81 MG/DL (0.40-0.90); GLUCOSE 168 MG/DL (70-104); MAGNESIUM 2.5 MG/DL (1.5-2.4); PHOSPHORUS 3.8 MG/DL (2.3-4.5); POTASSIUM 4.1 MMOL/L (3.5-5.1); SODIUM 143 MMOL/L (135-145); TOTAL CARBON DIOXIDE 31.6 MMOL/L (24-32); TOTAL PROTEIN 5.9 G/DL (6.4-8.2); eGFR 74 ML/MIN
[2020-08-24] MEDS: K and/or MAG REPLACEMENT MC SCH ×3 (08:00→20:00)
[2020-08-24] MEDS: lactose-reduced food (Ensure Enlive) - 237ml bottle PO SCH ×3 (08:00→18:37)
[2020-08-24] MEDS: lactobacillus rhamnosus 10,000 MMU CELLS/CAPSULE PO SCH ×2 (09:38→21:05)
[2020-08-24] MEDS: CefTRIAXone/D5W-Rocephin 1gm 50 ML IV SCH (09:39)
[2020-08-24] MEDS: methylPREDNISolone sod succ 125mg/2ml vial IV SCH ×2 (09:39→21:05)
[2020-08-24] MEDS: enoxaparin 40mg/0.4ml syringe SUBCUT SCH ×2 (09:39→21:08)
[2020-08-24] MEDS: benzonatate 100mg capsule PO SCH ×2 (09:39→17:10)
--- NOTE | 2020-08-24 10:31 | NUR ---
IV HEPARIN STOPPED FOR A HALF HOUR, SO REP COULD PUT ON LIFE VEST.
--- NOTE | 2020-08-24 11:38 | NUR ---
TPN consult: Pt now with 0% PO intake of meals with 75-100% PO intake of ONS only not meeting estimated nutrient needs. Pt with a PICC in place, unable to place NG tube d/t oxygen requirements per RN. Pt with average 788 kcal and 45 g protein PO intake/day with ONS. Recommend supplemental TPN using IBW as current wt isn't scaled. Recommendations have been d/w clinical pharmacist and will need adjusting if PO intake of ONS declines. LBM 08/20, PRN bowel care available. Will continue to follow closely. Rec: 1. Continue regular diet; encourage PO 2. Ensure Enlive TIDWM 3. Continuous 3:1 Clinimix-E 12/26 with 100 mL 20% intralipids with goal rate of 65 mL/hr. To begin at 30 mL/hr and advance to goal rate after 12 hours if pt tolerating. Once at goal to provide 1560 mL total volume/day, 1455 kcal, 74 g protein, 297 g dextrose (2.27 mg/kg/min), and 15 g lipids. TPN to meet 98% EEN and 96% EPN, 100% estimated nutrient needs to be met with combined PO intake of ONS 4. Consider increasing TPN goal rate to 80 mL/hr IF PO intake of ONS declines 5. Prealbumin q Wednesday/; daily weights 6. Routine bowel care 7. IF Corpak, continuous Vital AF with 60ml/hr goal to provide 1440ml volume, 1728 kcal, 1166ml water, and 108g protein. 8. IF TF; water flush 200ml Q4H Addendum: 08/24/20 at [address] Amended: Links added.
[2020-08-24] MEDS ORDERED: Dextrose 10%-water IV solution 1,000 ML IV PRN (14:55)
--- NOTE | 2020-08-24 14:57 | NUR ---
spoke to clinical nutrition re TPN orders. SHe states the recommendation was given to clinical pharmacy already today. I called and spoke to pharmacy who wants to start it this evening (as they do with most TPN orders). I asked for them to bring it as soon as possible as this order is 2 days old already and I would like to avoid any further delay in care.
[2020-08-24] MEDS: [UNRECOGNIZED DRUG - REMARK] IV SCH ×5 (17:11)
[2020-08-24] MEDS: Melatonin 3mg tablet PO SCH (21:06)
[2020-08-24] MEDS: LORazepam 2 mg/ml vial IV PRN (21:48)
[2020-08-25] MEDS: benzonatate 100mg capsule PO SCH ×4 (00:16→23:25)
[2020-08-25] MEDS: guaiFENesin/codeine phos 10ml UD oral syrup PO SCH ×7 (00:16→23:25)
[2020-08-25] MEDS ORDERED: MESSAGE TO PHARMACY PO ONE (01:05)
[2020-08-25] MEDS ORDERED: dextrose ORAL solution 15 GM/59 ML bottle PO PRN ×2 (01:05)
[2020-08-25] MEDS ORDERED: glucagon, human recombinant 1mg kit SUBCUT PRN (01:05)
[2020-08-25] MEDS ORDERED: dextrose 50%-water 50ml dispensing syringe IV PRN ×2 (01:05)
[2020-08-25] MEDS: insulin regular, human U-100 3ml vial - multi-dose SQ SCH ×4 (01:44→20:40)
[2020-08-25 02:00] VITALS: BP 154/80
[2020-08-25] MEDS: HYDROcodone/acetaminophen 5mg/325mg tablet PO PRN (04:30)
[2020-08-25 05:03] LABS: D-DIMER 2.53 MG/L FEU (0-0.50)
[2020-08-25 06:00] VITALS: BP 150/91
--- NOTE | 2020-08-25 06:40 | NUR ---
Patient in room ORTHO 4006. I have received report from CARMEN Horn and had the opportunity to ask questions and assume patient care.
[2020-08-25 07:06] LABS: BASOPHILS % (AUTO) 0.2 % (0-1); EOSINOPHILS % (AUTO) 0.1 % (0-6); HEMATOCRIT 37.2 % (35.0-45.0); HEMOGLOBIN 12.4 g/dl (12.0-16.0); LYMPHOCYTES # (AUTO) 0.1 X10'3 (1.1-4.8); LYMPHOCYTES % (AUTO) 0.9 % (21-51); MEAN CORPUSCULAR HGB CONC 33.4 g/dL (33.0-36.5); MEAN CORPUSCULAR VOLUME 92.7 FL (78-98); MEAN PLATELET VOLUME 8.1 FL (7.4-10.4); MONOCYTES # (AUTO) 0.7 X10'3 (0-0.9); NEUTROPHILS # (AUTO) 13.1 X10'3 (1.8-7.7); NEUTROPHILS % (AUTO) 93.8 % (42-75); PLATELET COUNT 255 X10'3 (140-440); RED BLOOD COUNT 4.01 X10'6 (4.20-5.60); RED CELL DISTRIBUTION WIDTH 13.6 % (11.5-14.5)
[2020-08-25 07:22] LABS: ALANINE AMINOTRANSFERASE 69 U/L (12-78); ALBUMIN/GLOBULIN RATIO 0.6 (1.1-1.5); ALKALINE PHOSPHATASE 140 IU/L (46-116); ANION GAP 4 (8-16); ASPARTATE AMINO TRANSFERASE 25 U/L (10-37); BILIRUBIN,TOTAL 0.4 MG/DL (0.1-1.0); C-REACTIVE PROTEIN 0.57 MG/DL (0.0-0.5); CALCIUM 8.3 MG/DL (8.5-10.1); CHLORIDE 108 MMOL/L (99-107); GLUCOSE 203 MG/DL (70-104); MAGNESIUM 2.7 MG/DL (1.5-2.4); PHOSPHORUS 3.8 MG/DL (2.3-4.5); POTASSIUM 4.7 MMOL/L (3.5-5.1); PREALBUMIN 21.6 MG/DL (19-36); SODIUM 144 MMOL/L (135-145); TOTAL CARBON DIOXIDE 31.9 MMOL/L (24-32); TOTAL PROTEIN 5.6 G/DL (6.4-8.2); TRIGLYCERIDES 323 MG/DL (20-135)
[2020-08-25] MEDS: K and/or MAG REPLACEMENT MC SCH ×2 (07:43→20:00)
[2020-08-25 07:47] LABS: BLOOD UREA NITROGEN 32 MG/DL (7-18)
[2020-08-25 07:51] LABS: BUN/CREATININE RATIO 49.2 (6.6-38.0); CREATININE 0.65 MG/DL (0.40-0.90); eGFR > 90 ML/MIN
[2020-08-25] MEDS: CefTRIAXone/D5W-Rocephin 1gm 50 ML IV SCH (07:51)
[2020-08-25] MEDS: methylPREDNISolone sod succ 125mg/2ml vial IV SCH ×2 (07:52→20:23)
[2020-08-25] MEDS: lactobacillus rhamnosus 10,000 MMU CELLS/CAPSULE PO SCH ×2 (07:52→20:22)
[2020-08-25] MEDS: lactose-reduced food (Ensure Enlive) - 237ml bottle PO SCH ×3 (07:53→18:00)
[2020-08-25] MEDS: enoxaparin 40mg/0.4ml syringe SUBCUT SCH ×2 (07:53→20:24)
[2020-08-25 10:00] VITALS: BP 169/104
[2020-08-25 18:00] VITALS: BP 154/92
--- NOTE | 2020-08-25 18:13 | NUR ---
Problems reprioritized. Patient report given, questions answered & plan of care reviewed with CARMEN ALBERTO.
--- NOTE | 2020-08-25 18:39 | NUR ---
Patient in room ORTHO 4006. I have received report from Rachel MORALES and had the opportunity to ask questions and assume patient care.
--- NOTE | 2020-08-25 18:40 | NUR ---
Spoke with Cassandra pharmacist confirm TPN [id number] bag & rate at 2000
--- NOTE | 2020-08-25 20:20 | NUR ---
attempted to confirm rate change w/ charge- she stated she confirmed w/ day shift charge & called pharmacy no rate change at this time due to shift in electrolytes- Rate of TPN 30mLs/Hr
[2020-08-25] MEDS: Melatonin 3mg tablet PO SCH (20:23)
[2020-08-25] MEDS: [UNRECOGNIZED DRUG - REMARK] IV SCH ×5 (20:26)
[2020-08-25 22:00] VITALS: BP 123/102
[2020-08-25] MEDS: LORazepam 2 mg/ml vial IV PRN (23:26)
[2020-08-26 02:00] VITALS: BP 137/99
[2020-08-26] MEDS: insulin regular, human U-100 3ml vial - multi-dose SQ SCH ×4 (02:24→21:36)
[2020-08-26] MEDS: guaiFENesin/codeine phos 10ml UD oral syrup PO SCH ×5 (04:00→20:58)
--- NOTE | 2020-08-26 06:47 | NUR ---
Problems reprioritized. Patient report given, questions answered & plan of care reviewed with Millie MORALES.
[2020-08-26 07:22] LABS: BASOPHILS # (AUTO) 0.1 X10'3 (0-0.2); BASOPHILS % (AUTO) 0.5 % (0-1); EOSINOPHILS % (AUTO) 0 % (0-6); HEMATOCRIT 40.2 % (35.0-45.0); HEMOGLOBIN 13.4 g/dl (12.0-16.0); LYMPHOCYTES # (AUTO) 0.2 X10'3 (1.1-4.8); LYMPHOCYTES % (AUTO) 1.2 % (21-51); MEAN CORPUSCULAR HEMOGLOBIN 30.8 PG (27.0-31.0); MEAN CORPUSCULAR HGB CONC 33.2 g/dL (33.0-36.5); MEAN CORPUSCULAR VOLUME 92.7 FL (78-98); MEAN PLATELET VOLUME 8.4 FL (7.4-10.4); MONOCYTES # (AUTO) 0.7 X10'3 (0-0.9); MONOCYTES % (AUTO) 4.2 % (2-12); NEUTROPHILS # (AUTO) 15.2 X10'3 (1.8-7.7); NEUTROPHILS % (AUTO) 94.1 % (42-75); PLATELET COUNT 260 X10'3 (140-440); RED BLOOD COUNT 4.34 X10'6 (4.20-5.60); RED CELL DISTRIBUTION WIDTH 13.7 % (11.5-14.5); WHITE BLOOD COUNT 16.1 X10'3 (4.5-11.0)
[2020-08-26] MEDS: lactose-reduced food (Ensure Enlive) - 237ml bottle PO SCH ×4 (07:30→22:49)
[2020-08-26 07:39] LABS: D-DIMER 2.36 MG/L FEU (0-0.50)
[2020-08-26 07:49] LABS: ALANINE AMINOTRANSFERASE 90 U/L (12-78); ALBUMIN 2.1 G/DL (3.4-5.0); ALBUMIN/GLOBULIN RATIO 0.6 (1.1-1.5); ALKALINE PHOSPHATASE 131 IU/L (46-116); ANION GAP 5 (8-16); ASPARTATE AMINO TRANSFERASE 32 U/L (10-37); BILIRUBIN,TOTAL 0.4 MG/DL (0.1-1.0); BLOOD UREA NITROGEN 30 MG/DL (7-18); BUN/CREATININE RATIO 41.1 (6.6-38.0); C-REACTIVE PROTEIN 0.22 MG/DL (0.0-0.5); CALCIUM 8.3 MG/DL (8.5-10.1); CHLORIDE 107 MMOL/L (99-107); CREATININE 0.73 MG/DL (0.40-0.90); GLUCOSE 153 MG/DL (70-104); MAGNESIUM 2.6 MG/DL (1.5-2.4); PHOSPHORUS 3.7 MG/DL (2.3-4.5); POTASSIUM 4.4 MMOL/L (3.5-5.1); SODIUM 143 MMOL/L (135-145); TOTAL PROTEIN 5.8 G/DL (6.4-8.2); eGFR 83 ML/MIN
[2020-08-26] MEDS: K and/or MAG REPLACEMENT MC SCH ×2 (08:00→20:00)
--- NOTE | 2020-08-26 08:02 | NUR ---
PAGER ID: [phone] MESSAGE: [phone] WHEELER Wants to talk about code status, currently DNR, this is NOT the patients wish!! [phone] NATALIE
[2020-08-26 10:00] VITALS: BP 149/90
[2020-08-26] MEDS: CefTRIAXone/D5W-Rocephin 1gm 50 ML IV SCH (10:28)
[2020-08-26] MEDS: lactobacillus rhamnosus 10,000 MMU CELLS/CAPSULE PO SCH ×2 (10:28→20:58)
[2020-08-26] MEDS: methylPREDNISolone sod succ 125mg/2ml vial IV SCH (10:28)
[2020-08-26] MEDS: enoxaparin 40mg/0.4ml syringe SUBCUT SCH ×2 (10:29→20:59)
[2020-08-26] MEDS: benzonatate 100mg capsule PO SCH ×2 (10:29→15:42)
[2020-08-26 14:00] VITALS: BP 152/92
[2020-08-26 18:00] VITALS: BP 149/98
--- NOTE | 2020-08-26 18:19 | NUR ---
Report given to Megan MORALES
--- NOTE | 2020-08-26 18:30 | NUR ---
Patient in room ORTHO 4006. I have received report from Akua, and had the opportunity to ask questions and assume patient care.
--- NOTE | 2020-08-26 19:32 | NUR ---
spoke with RX Vamsi. stated that pt's labs look good. should increase to goal rate of 65ml/hr. will increase at 1999 with next glucose check. nutritional labs ordered for
[2020-08-26] MEDS: methylPREDNISolone sod succ/PF 40mg inj. IV SCH (20:58)
[2020-08-26] MEDS: Melatonin 3mg tablet PO SCH (20:59)
[2020-08-26] MEDS: [UNRECOGNIZED DRUG - REMARK] IV SCH ×5 (21:07)
[2020-08-26 22:00] VITALS: BP 151/81
[2020-08-27] MEDS: benzonatate 100mg capsule PO SCH ×3 (00:31→15:33)
[2020-08-27] MEDS: LORazepam 2 mg/ml vial IV PRN (00:31)
[2020-08-27] MEDS: sod chloride 0.9% 10ml flush syringe IV SCH ×3 (00:31→15:33)
[2020-08-27] MEDS: guaiFENesin/codeine phos 10ml UD oral syrup PO SCH ×6 (00:31→20:48)
[2020-08-27 02:00] VITALS: BP 132/77
[2020-08-27] MEDS: insulin regular, human U-100 3ml vial - multi-dose SQ SCH ×4 (04:25→21:18)
[2020-08-27 06:00] VITALS: BP 150/80
--- NOTE | 2020-08-27 06:31 | NUR ---
Problems reprioritized. Patient report given, questions answered & plan of care reviewed with Gerardo.
--- NOTE | 2020-08-27 06:32 | NUR ---
Patient in room ORTHO 4006. I have received report from CARMEN Bella and had the opportunity to ask questions and assume patient care.
[2020-08-27 06:36] LABS: BASOPHILS # (AUTO) 0.1 X10'3 (0-0.2); BASOPHILS % (AUTO) 0.7 % (0-1); EOSINOPHILS % (AUTO) 0 % (0-6); HEMATOCRIT 37.9 % (35.0-45.0); HEMOGLOBIN 12.5 g/dl (12.0-16.0); LYMPHOCYTES # (AUTO) 0.2 X10'3 (1.1-4.8); LYMPHOCYTES % (AUTO) 1.3 % (21-51); MEAN CORPUSCULAR HEMOGLOBIN 30.5 PG (27.0-31.0); MEAN CORPUSCULAR VOLUME 92.5 FL (78-98); MEAN PLATELET VOLUME 8.8 FL (7.4-10.4); MONOCYTES # (AUTO) 0.7 X10'3 (0-0.9); MONOCYTES % (AUTO) 4.6 % (2-12); NEUTROPHILS # (AUTO) 13.3 X10'3 (1.8-7.7); NEUTROPHILS % (AUTO) 93.4 % (42-75); PLATELET COUNT 208 X10'3 (140-440); RED CELL DISTRIBUTION WIDTH 13.4 % (11.5-14.5); WHITE BLOOD COUNT 14.2 X10'3 (4.5-11.0)
[2020-08-27 06:39] LABS: D-DIMER 2.17 MG/L FEU (0-0.50)
[2020-08-27 06:52] LABS: ALANINE AMINOTRANSFERASE 96 U/L (12-78); ALBUMIN 2.1 G/DL (3.4-5.0); ALBUMIN/GLOBULIN RATIO 0.6 (1.1-1.5); ALKALINE PHOSPHATASE 111 IU/L (46-116); ANION GAP 4 (8-16); ASPARTATE AMINO TRANSFERASE 30 U/L (10-37); BILIRUBIN,TOTAL 0.4 MG/DL (0.1-1.0); BLOOD UREA NITROGEN 29 MG/DL (7-18); BUN/CREATININE RATIO 43.9 (6.6-38.0); C-REACTIVE PROTEIN 0.05 MG/DL (0.0-0.5); CALCIUM 8.4 MG/DL (8.5-10.1); CHLORIDE 106 MMOL/L (99-107); CREATININE 0.66 MG/DL (0.40-0.90); GLUCOSE 211 MG/DL (70-104); POTASSIUM 4.3 MMOL/L (3.5-5.1); SODIUM 141 MMOL/L (135-145); TOTAL CARBON DIOXIDE 30.8 MMOL/L (24-32); TOTAL PROTEIN 5.4 G/DL (6.4-8.2); eGFR > 90 ML/MIN
[2020-08-27] MEDS: K and/or MAG REPLACEMENT MC SCH ×2 (08:00→20:00)
[2020-08-27] MEDS: methylPREDNISolone sod succ/PF 40mg inj. IV SCH ×2 (09:58→20:48)
[2020-08-27] MEDS: lactobacillus rhamnosus 10,000 MMU CELLS/CAPSULE PO SCH ×2 (09:58→20:48)
[2020-08-27 10:00] VITALS: BP 171/99
[2020-08-27] MEDS: enoxaparin 40mg/0.4ml syringe SUBCUT SCH ×2 (10:00→20:49)
--- NOTE | 2020-08-27 11:59 | NUR ---
F/u 08/27: Pt tolerating TPN at goal PO 75-100% avg ensure enlives w/ mostly 0% PO regular diet; desaturates to 70's when takes bipap off to sip ensure per RN. Not stable enough for corpak placement at this time given amount of desaturation per RN. LBM 08/20 likely impacted by poor PO hx as well as no bowel care this admit w/ respiratory status. ABILIO mireles MD regarding routine bowel care this admit; may benefit from opioid antagonist as medically indicated since receiving PRN norco and ativan. Noted sacral PU per EMR but no WOC noted at this time; will monitor for WOC eval if true wounds. To possibly be out of E / TPN and change to E 5/15 per clinical pharmacist; additional recs below. Will continue to monitor. Rec: 1. Continue regular diet; encourage PO 2. Ensure Enlive TIDWM; encourage PO 3. Continuous 3:1 Clinimix-E 12/26 with 100 mL 20% intralipids with goal rate of 65 mL/hr. To begin at 30 mL/hr and advance to goal rate after 12 hours if pt tolerating. Once at goal to provide 1560 mL total volume/day, 1455 kcal, 74 g protein, 297 g dextrose (2.27 mg/kg/min), and 15 g lipids. TPN to meet 98% EEN and 96% EPN, 100% estimated nutrient needs to be met with combined PO intake of ONS 4. Consider increasing TPN goal rate to 80 mL/hr IF PO intake of ONS declines 5. IF change to 3:1 Clinimix E /15 using 100ml 20% intralipids; recommend initiating at 65ml/hr goal since tolerating prior PN at goal. To provide 1560ml fluid, 74g AA, 223g DEX (1.70mg/kg/min), and 1204 total kcals. 6. Prealbumin q Wednesday/; daily weights 7. Routine bowel care 8. IF Corpak, continuous Vital AF with 60ml/hr goal to provide 1440ml volume, 1728 kcal, 1166ml water, and 108g protein. 9. IF TF; water flush 200ml Q4H Addendum: 08/27/20 at [address] Amended: Links added.
[2020-08-27] MEDS: lactose-reduced food (Ensure Enlive) - 237ml bottle PO SCH ×2 (12:27→18:00)
--- NOTE | 2020-08-27 13:03 | NUR ---
DECREASED PTS FIO2 FROM 70% TO 65% PER DR GILMORE. CALLED TELE 30 MIN AFTER DECREASING FIO2 TO 65%, PT SAO2 95%, WILL CONTINUE TO MONITOR.
[2020-08-27 14:00] VITALS: BP 154/96
--- NOTE | 2020-08-27 15:05 | NUR ---
adjusted pts FIO2 down to 60%, SAO2 was 96% on 65% FIO2. will continue to monitor
[2020-08-27 18:00] VITALS: BP 166/71
--- NOTE | 2020-08-27 18:00 | NUR ---
RECEIVED REPORT FROM URVASHI MORALES AND ASSUMED PATIENT CARE
--- NOTE | 2020-08-27 18:24 | NUR ---
Problems reprioritized. Patient report given, questions answered & plan of care reviewed with CARMEN GAGNON.
[2020-08-27] MEDS: Melatonin 3mg tablet PO SCH (20:48)
[2020-08-27] MEDS: [UNRECOGNIZED DRUG - REMARK] IV SCH ×5 (20:49)
[2020-08-27] MEDS: docusate sod 100mg capsule PO SCH (20:49)
[2020-08-27 22:00] VITALS: BP 148/96
[2020-08-28 02:00] VITALS: BP 147/88
[2020-08-28] MEDS: LORazepam 2 mg/ml vial IV PRN (02:02)
[2020-08-28] MEDS: sod chloride 0.9% 10ml flush syringe IV SCH ×4 (02:03→23:02)
[2020-08-28] MEDS: benzonatate 100mg capsule PO SCH ×4 (02:03→23:03)
[2020-08-28] MEDS: insulin regular, human U-100 3ml vial - multi-dose SQ SCH ×4 (02:27→20:37)
[2020-08-28 04:14] LABS: BASOPHILS % (AUTO) 0.1 % (0-1); EOSINOPHILS % (AUTO) 0 % (0-6); HEMATOCRIT 37.9 % (35.0-45.0); HEMOGLOBIN 12.7 g/dl (12.0-16.0); LYMPHOCYTES # (AUTO) 0.2 X10'3 (1.1-4.8); MEAN CORPUSCULAR HEMOGLOBIN 30.9 PG (27.0-31.0); MEAN CORPUSCULAR HGB CONC 33.4 g/dL (33.0-36.5); MEAN CORPUSCULAR VOLUME 92.6 FL (78-98); MEAN PLATELET VOLUME 8.4 FL (7.4-10.4); MONOCYTES # (AUTO) 0.7 X10'3 (0-0.9); MONOCYTES % (AUTO) 4.3 % (2-12); NEUTROPHILS # (AUTO) 15.9 X10'3 (1.8-7.7); NEUTROPHILS % (AUTO) 94.6 % (42-75); PLATELET COUNT 187 X10'3 (140-440); RED BLOOD COUNT 4.09 X10'6 (4.20-5.60); RED CELL DISTRIBUTION WIDTH 13.7 % (11.5-14.5); WHITE BLOOD COUNT 16.8 X10'3 (4.5-11.0)
[2020-08-28 04:25] LABS: ALANINE AMINOTRANSFERASE 112 U/L (12-78); ALBUMIN/GLOBULIN RATIO 0.6 (1.1-1.5); ALKALINE PHOSPHATASE 105 IU/L (46-116); ANION GAP 2 (8-16); ASPARTATE AMINO TRANSFERASE 27 U/L (10-37); BILIRUBIN,TOTAL 0.4 MG/DL (0.1-1.0); BLOOD UREA NITROGEN 24 MG/DL (7-18); BUN/CREATININE RATIO 37.5 (6.6-38.0); CALCIUM 7.9 MG/DL (8.5-10.1); CHLORIDE 105 MMOL/L (99-107); CREATININE 0.64 MG/DL (0.40-0.90); GLUCOSE 221 MG/DL (70-104); POTASSIUM 4.7 MMOL/L (3.5-5.1); SODIUM 137 MMOL/L (135-145); TOTAL PROTEIN 5.2 G/DL (6.4-8.2); eGFR > 90 ML/MIN
[2020-08-28] MEDS: guaiFENesin/codeine phos 10ml UD oral syrup PO SCH ×7 (05:22→23:03)
[2020-08-28] MEDS: HYDROcodone/acetaminophen 5mg/325mg tablet PO PRN ×2 (05:22→20:39)
[2020-08-28 06:00] VITALS: BP 140/80
--- NOTE | 2020-08-28 06:30 | NUR ---
REPORT GIVEN TO NATALIE MORALES
[2020-08-28] MEDS: K and/or MAG REPLACEMENT MC SCH ×2 (08:00→20:00)
[2020-08-28] MEDS: lactose-reduced food (Ensure Enlive) - 237ml bottle PO SCH ×3 (08:00→18:00)
[2020-08-28] MEDS: lactobacillus rhamnosus 10,000 MMU CELLS/CAPSULE PO SCH ×2 (09:55→20:13)
[2020-08-28] MEDS: enoxaparin 40mg/0.4ml syringe SUBCUT SCH ×2 (09:55→20:13)
[2020-08-28] MEDS: methylPREDNISolone sod succ/PF 40mg inj. IV SCH (09:55)
[2020-08-28] MEDS: docusate sod 100mg capsule PO SCH ×2 (09:55→20:13)
[2020-08-28 11:07] LABS: D-DIMER 1.83 MG/L FEU (0-0.50)
[2020-08-28 18:00] VITALS: BP 153/93
--- NOTE | 2020-08-28 18:35 | NUR ---
Patient in room ORTHO 4006. I have received report from quinn Pinto and had the opportunity to ask questions and assume patient care.
[2020-08-28] MEDS: Melatonin 3mg tablet PO SCH (20:13)
[2020-08-28 22:00] VITALS: BP 143/81
[2020-08-28] MEDS: [UNRECOGNIZED DRUG - REMARK] IV SCH ×5 (23:01)
[2020-08-29 02:00] VITALS: BP 146/84
[2020-08-29] MEDS: insulin regular, human U-100 3ml vial - multi-dose SQ SCH ×2 (02:14→14:58)
[2020-08-29] MEDS: guaiFENesin/codeine phos 10ml UD oral syrup PO SCH ×6 (04:56→23:58)
[2020-08-29 05:35] LABS: BASOPHILS % (AUTO) 0.1 % (0-1); EOSINOPHILS % (AUTO) 0.1 % (0-6); HEMATOCRIT 39.6 % (35.0-45.0); LYMPHOCYTES # (AUTO) 0.4 X10'3 (1.1-4.8); LYMPHOCYTES % (AUTO) 2.1 % (21-51); MEAN CORPUSCULAR HGB CONC 32.9 g/dL (33.0-36.5); MEAN CORPUSCULAR VOLUME 91.2 FL (78-98); MEAN PLATELET VOLUME 8.8 FL (7.4-10.4); MONOCYTES # (AUTO) 1.8 X10'3 (0-0.9); MONOCYTES % (AUTO) 9.3 % (2-12); NEUTROPHILS # (AUTO) 16.6 X10'3 (1.8-7.7); NEUTROPHILS % (AUTO) 88.4 % (42-75); PLATELET COUNT 183 X10'3 (140-440); RED BLOOD COUNT 4.35 X10'6 (4.20-5.60); RED CELL DISTRIBUTION WIDTH 13.7 % (11.5-14.5); WHITE BLOOD COUNT 18.8 X10'3 (4.5-11.0)
[2020-08-29 05:48] LABS: D-DIMER 1.91 MG/L FEU (0-0.50)
[2020-08-29 05:52] LABS: ALANINE AMINOTRANSFERASE 121 U/L (12-78); ALBUMIN 2.1 G/DL (3.4-5.0); ALBUMIN/GLOBULIN RATIO 0.7 (1.1-1.5); ALKALINE PHOSPHATASE 112 IU/L (46-116); ANION GAP 2 (8-16); ASPARTATE AMINO TRANSFERASE 33 U/L (10-37); BILIRUBIN,TOTAL 0.4 MG/DL (0.1-1.0); BLOOD UREA NITROGEN 24 MG/DL (7-18); BUN/CREATININE RATIO 36.4 (6.6-38.0); CALCIUM 8.2 MG/DL (8.5-10.1); CHLORIDE 104 MMOL/L (99-107); CREATININE 0.66 MG/DL (0.40-0.90); GLUCOSE 158 MG/DL (70-104); POTASSIUM 4.5 MMOL/L (3.5-5.1); SODIUM 137 MMOL/L (135-145); TOTAL CARBON DIOXIDE 31.3 MMOL/L (24-32); TOTAL PROTEIN 5.3 G/DL (6.4-8.2); eGFR > 90 ML/MIN
[2020-08-29 05:56] LABS: C-REACTIVE PROTEIN < 0.05 MG/DL (0.0-0.5)
[2020-08-29 06:00] VITALS: BP 149/91
--- NOTE | 2020-08-29 06:36 | NUR ---
Problems reprioritized. Patient report given, questions answered & plan of care reviewed with CARMEN TIDWELL.
--- NOTE | 2020-08-29 06:42 | NUR ---
Patient in room ORTHO 4006. I have received report from CARMEN Hall and had the opportunity to ask questions and assume patient care.
[2020-08-29] MEDS ORDERED: methylPREDNISolone sod succ/PF 40mg inj. IV SCH (08:00)
[2020-08-29] MEDS: K and/or MAG REPLACEMENT MC SCH ×2 (08:00→20:00)
[2020-08-29] MEDS: sod chloride 0.9% 10ml flush syringe IV SCH ×3 (08:00→23:59)
[2020-08-29] MEDS: enoxaparin 40mg/0.4ml syringe SUBCUT SCH ×2 (08:33→20:21)
[2020-08-29] MEDS: docusate sod 100mg capsule PO SCH ×2 (08:34→20:21)
[2020-08-29] MEDS: benzonatate 100mg capsule PO SCH ×3 (08:34→23:58)
[2020-08-29] MEDS: lactobacillus rhamnosus 10,000 MMU CELLS/CAPSULE PO SCH ×2 (08:34→20:21)
[2020-08-29] MEDS: lactose-reduced food (Ensure Enlive) - 237ml bottle PO SCH ×4 (08:44→18:30)
[2020-08-29 10:00] VITALS: BP 118/64
[2020-08-29 14:00] VITALS: BP 122/74
--- NOTE | 2020-08-29 14:50 | NUR ---
PAGER ID: [phone] MESSAGE: rm. [phone]. pt. Ching Durán. pt. blood glucose came back at 360. am I ok to d/c her TPN? thank you. Vicky [phone]
[2020-08-29 18:00] VITALS: BP 135/90
--- NOTE | 2020-08-29 18:22 | NUR ---
Problems reprioritized. Patient report given, questions answered & plan of care reviewed with CARMEN Bae.
--- NOTE | 2020-08-29 18:25 | NUR ---
Patient in room ORTHO 4006. I have received report from CARMEN Serrano and had the opportunity to ask questions and assume patient care.
[2020-08-29] MEDS: magnesium hydroxide 30ml (MOM) UD suspension PO PRN (20:21)
[2020-08-29] MEDS: Melatonin 3mg tablet PO SCH (20:21)
[2020-08-29] MEDS ORDERED: [UNRECOGNIZED DRUG - REMARK] IV SCH ×5 (21:00)
[2020-08-29 22:00] VITALS: BP 126/81
[2020-08-29] MEDS: HYDROcodone/acetaminophen 5mg/325mg tablet PO PRN (22:09)
[2020-08-30 02:00] VITALS: BP 118/81
[2020-08-30] MEDS: HYDROcodone/acetaminophen 5mg/325mg tablet PO PRN ×2 (02:08→22:37)
[2020-08-30] MEDS: guaiFENesin/codeine phos 10ml UD oral syrup PO SCH ×5 (03:43→19:41)
[2020-08-30 04:12] LABS: BASOPHILS % (AUTO) 0.1 % (0-1); EOSINOPHILS # (AUTO) 0.1 X10'3 (0-0.9); EOSINOPHILS % (AUTO) 0.3 % (0-6); HEMATOCRIT 38.8 % (35.0-45.0); HEMOGLOBIN 12.9 g/dl (12.0-16.0); LYMPHOCYTES # (AUTO) 0.6 X10'3 (1.1-4.8); LYMPHOCYTES % (AUTO) 3.7 % (21-51); MEAN CORPUSCULAR HEMOGLOBIN 30.5 PG (27.0-31.0); MEAN CORPUSCULAR HGB CONC 33.3 g/dL (33.0-36.5); MEAN CORPUSCULAR VOLUME 91.7 FL (78-98); MEAN PLATELET VOLUME 8.8 FL (7.4-10.4); MONOCYTES # (AUTO) 1.5 X10'3 (0-0.9); MONOCYTES % (AUTO) 8.6 % (2-12); NEUTROPHILS # (AUTO) 15.2 X10'3 (1.8-7.7); NEUTROPHILS % (AUTO) 87.3 % (42-75); PLATELET COUNT 168 X10'3 (140-440); RED BLOOD COUNT 4.23 X10'6 (4.20-5.60); RED CELL DISTRIBUTION WIDTH 14.1 % (11.5-14.5); WHITE BLOOD COUNT 17.5 X10'3 (4.5-11.0)
[2020-08-30 04:22] LABS: D-DIMER 1.48 MG/L FEU (0-0.50)
[2020-08-30 04:26] LABS: ALANINE AMINOTRANSFERASE 108 U/L (12-78); ALBUMIN 2.1 G/DL (3.4-5.0); ALBUMIN/GLOBULIN RATIO 0.7 (1.1-1.5); ALKALINE PHOSPHATASE 104 IU/L (46-116); ANION GAP 1 (8-16); ASPARTATE AMINO TRANSFERASE 23 U/L (10-37); BILIRUBIN,TOTAL 0.4 MG/DL (0.1-1.0); BLOOD UREA NITROGEN 26 MG/DL (7-18); BUN/CREATININE RATIO 36.6 (6.6-38.0); C-REACTIVE PROTEIN 0.07 MG/DL (0.0-0.5); CALCIUM 8.3 MG/DL (8.5-10.1); CHLORIDE 105 MMOL/L (99-107); CREATININE 0.71 MG/DL (0.40-0.90); GLUCOSE 133 MG/DL (70-104); POTASSIUM 5.3 MMOL/L (3.5-5.1); SODIUM 140 MMOL/L (135-145); TOTAL CARBON DIOXIDE 33.8 MMOL/L (24-32); TOTAL PROTEIN 5.2 G/DL (6.4-8.2); eGFR 86 ML/MIN
[2020-08-30 06:00] VITALS: BP 119/69
--- NOTE | 2020-08-30 06:12 | NUR ---
Problems reprioritized. Patient report given, questions answered & plan of care reviewed with CARMEN Bull.
[2020-08-30] MEDS: docusate sod 100mg capsule PO SCH ×3 (07:40→20:00)
[2020-08-30] MEDS: enoxaparin 40mg/0.4ml syringe SUBCUT SCH ×2 (07:40→19:41)
[2020-08-30] MEDS: sod chloride 0.9% 10ml flush syringe IV SCH ×3 (07:40→22:45)
[2020-08-30] MEDS: lactobacillus rhamnosus 10,000 MMU CELLS/CAPSULE PO SCH ×2 (07:40→19:41)
[2020-08-30] MEDS: benzonatate 100mg capsule PO SCH ×2 (07:40→15:32)
[2020-08-30] MEDS: lactose-reduced food (Ensure Enlive) - 237ml bottle PO SCH ×3 (07:40→17:53)
[2020-08-30] MEDS: K and/or MAG REPLACEMENT MC SCH ×2 (07:42→20:00)
[2020-08-30] MEDS ORDERED: methylPREDNISolone sod succ/PF 40mg inj. IV SCH (08:00)
--- NOTE | 2020-08-30 09:58 | NUR ---
Reassessment: TPN was discontinued 08/29 and pt continues on regular diet. PO intake up to 50-75% PO intake at two most recent meals, previously with 0-25% PO intake of meals. Pt with 100% PO intake of ONS TID providing 1050 kcal and 60 g protein a day meeting 51% minimum estimated energy needs and 56% minimum estimated protein needs. Pt will meet estimated nutrient needs if continues with average 50-75% PO intake of meals with 75-100% PO intake of ONS. Pt remains constipated with LBM 08/22. Pt started on routine Colace 08/27 and received PRN MoM for the first time 08/29. D/w dietary to send prune juice with next meal to further assist with bowel regularity. Will continue to follow closely and monitor need for further nutrition intervention. Rec: 1. Continue regular diet; encourage PO 2. Ensure Enlive TIDWM; encourage PO 3. IF Corpak, continuous Vital AF with 60ml/hr goal to provide 1440ml volume, 1728 kcal, 1166ml water, and 108g protein. 4. IF TF; water flush 200ml Q4H, prealbumin q Wednesday/, daily wts 5. Routine bowel care 6. Scaled weights per rx Addendum: 08/30/20 at [address] Amended: Links added.
[2020-08-30 10:14] VITALS: BP 120/71
[2020-08-30 18:00] VITALS: BP 118/88
--- NOTE | 2020-08-30 18:17 | NUR ---
Problems reprioritized. Patient report given, questions answered & plan of care reviewed with Justina MORALES.
[2020-08-30 22:00] VITALS: BP 142/68
[2020-08-30] MEDS: Melatonin 3mg tablet PO SCH (22:37)
[2020-08-31] VITALS (7 sets, daily range): BP systolic 102–147; BP diastolic 57–83
[2020-08-31] MEDS: guaiFENesin/codeine phos 10ml UD oral syrup PO SCH ×6 (00:03→19:48)
[2020-08-31] MEDS: benzonatate 100mg capsule PO SCH ×3 (00:03→15:36)
[2020-08-31 05:28] LABS: EOSINOPHILS # (AUTO) 0.2 X10'3 (0-0.9); MEAN CORPUSCULAR HEMOGLOBIN 30.6 PG (27.0-31.0); MEAN CORPUSCULAR HGB CONC 33.4 g/dL (33.0-36.5)
[2020-08-31 05:30] LABS: BASOPHILS % (AUTO) 0.2 % (0-1); EOSINOPHILS % (AUTO) 1.2 % (0-6); HEMATOCRIT 40.5 % (35.0-45.0); HEMOGLOBIN 13.5 g/dl (12.0-16.0); LYMPHOCYTES # (AUTO) 1.1 X10'3 (1.1-4.8); LYMPHOCYTES % (AUTO) 6.2 % (21-51); MEAN CORPUSCULAR VOLUME 91.8 FL (78-98); MEAN PLATELET VOLUME 8.9 FL (7.4-10.4); MONOCYTES # (AUTO) 1.4 X10'3 (0-0.9); NEUTROPHILS # (AUTO) 14.7 X10'3 (1.8-7.7); NEUTROPHILS % (AUTO) 84.4 % (42-75); PLATELET COUNT 170 X10'3 (140-440); RED BLOOD COUNT 4.41 X10'6 (4.20-5.60); RED CELL DISTRIBUTION WIDTH 13.7 % (11.5-14.5); WHITE BLOOD COUNT 17.4 X10'3 (4.5-11.0)
[2020-08-31 05:31] LABS: D-DIMER 1.55 MG/L FEU (0-0.50)
[2020-08-31 05:34] LABS: ALANINE AMINOTRANSFERASE 96 U/L (12-78); ALBUMIN 2.2 G/DL (3.4-5.0); ALBUMIN/GLOBULIN RATIO 0.6 (1.1-1.5); ALKALINE PHOSPHATASE 116 IU/L (46-116); ANION GAP 4 (8-16); ASPARTATE AMINO TRANSFERASE 18 U/L (10-37); BILIRUBIN,TOTAL 0.4 MG/DL (0.1-1.0); BLOOD UREA NITROGEN 25 MG/DL (7-18); BUN/CREATININE RATIO 37.3 (6.6-38.0); CALCIUM 8.3 MG/DL (8.5-10.1); CHLORIDE 104 MMOL/L (99-107); CREATININE 0.67 MG/DL (0.40-0.90); GLUCOSE 144 MG/DL (70-104); POTASSIUM 4.5 MMOL/L (3.5-5.1); SODIUM 139 MMOL/L (135-145); TOTAL CARBON DIOXIDE 31.3 MMOL/L (24-32); TOTAL PROTEIN 5.7 G/DL (6.4-8.2); eGFR > 90 ML/MIN
[2020-08-31] MEDS: K and/or MAG REPLACEMENT MC SCH ×2 (08:00→19:45)
[2020-08-31] MEDS: lactobacillus rhamnosus 10,000 MMU CELLS/CAPSULE PO SCH ×2 (08:52→19:48)
[2020-08-31] MEDS: dexamethasone 1mg tablet PO SCH (08:52)
[2020-08-31] MEDS: docusate sod 100mg capsule PO SCH ×2 (08:52→19:48)
[2020-08-31] MEDS: sod chloride 0.9% 10ml flush syringe IV SCH ×2 (08:53→15:36)
[2020-08-31] MEDS: enoxaparin 40mg/0.4ml syringe SUBCUT SCH ×2 (08:53→19:49)
[2020-08-31] MEDS: lactose-reduced food (Ensure Enlive) - 237ml bottle PO SCH ×3 (08:53→17:56)
--- NOTE | 2020-08-31 16:42 | NUR ---
Patient dangled at bedside, heart rate below 110. O2 held up about 95%.
--- NOTE | 2020-08-31 18:17 | NUR ---
Problems reprioritized. Patient report given, questions answered & plan of care reviewed with Kathia MORALES.
--- NOTE | 2020-08-31 18:26 | NUR ---
Patient in room ORTHO 4011. I have received report from CARMEN Bull and had the opportunity to ask questions and assume patient care.
[2020-08-31] MEDS: HYDROcodone/acetaminophen 5mg/325mg tablet PO PRN (19:17)
[2020-08-31] MEDS: Melatonin 3mg tablet PO SCH (22:02)
--- NOTE | 2020-08-31 22:48 | NUR ---
Dr. Duff was paged regarding call from [employer] that patient had some ST elevation in some of the tele leads and that we did an ekg and asking her to read it. She read the ekg and ordered one set of troponin at this time.
[2020-09-01] MEDS: guaiFENesin/codeine phos 10ml UD oral syrup PO SCH ×6 (00:02→21:28)
[2020-09-01] MEDS: sod chloride 0.9% 10ml flush syringe IV SCH ×3 (00:02→16:24)
[2020-09-01] MEDS: benzonatate 100mg capsule PO SCH ×3 (00:02→16:24)
[2020-09-01] MEDS: HYDROcodone/acetaminophen 5mg/325mg tablet PO PRN ×2 (00:05→21:42)
[2020-09-01 02:00] VITALS: BP 117/71
[2020-09-01 06:00] VITALS: BP 112/79
--- NOTE | 2020-09-01 06:25 | NUR ---
Patient in room ORTHO 4011. I have received report from Kathia MORALES and had the opportunity to ask questions and assume patient care.
--- NOTE | 2020-09-01 06:41 | NUR ---
Problems reprioritized. Patient report given, questions answered & plan of care reviewed with CARMEN Ann.
[2020-09-01] MEDS: lactose-reduced food (Ensure Enlive) - 237ml bottle PO SCH ×3 (08:00→18:00)
[2020-09-01] MEDS: K and/or MAG REPLACEMENT MC SCH ×2 (08:00→20:00)
[2020-09-01] MEDS: lactobacillus rhamnosus 10,000 MMU CELLS/CAPSULE PO SCH ×2 (08:16→21:28)
[2020-09-01] MEDS: docusate sod 100mg capsule PO SCH ×2 (08:16→21:28)
[2020-09-01] MEDS: enoxaparin 40mg/0.4ml syringe SUBCUT SCH ×2 (08:17→21:29)
[2020-09-01] MEDS: dexamethasone 1mg tablet PO SCH (08:17)
[2020-09-01 11:00] VITALS: BP 130/89
[2020-09-01 15:00] VITALS: BP 130/82
[2020-09-01 18:00] VITALS: BP 136/80
--- NOTE | 2020-09-01 18:22 | NUR ---
Problems reprioritized. Patient report given, questions answered & plan of care reviewed with Dacia MORALES.
[2020-09-01] MEDS: Melatonin 3mg tablet PO SCH (21:29)
[2020-09-01 22:00] VITALS: BP 124/79
[2020-09-02] MEDS: benzonatate 100mg capsule PO SCH ×4 (01:21→23:54)
[2020-09-02] MEDS: guaiFENesin/codeine phos 10ml UD oral syrup PO SCH ×7 (01:21→23:54)
[2020-09-02 02:00] VITALS: BP 137/84
[2020-09-02] MEDS: HYDROcodone/acetaminophen 5mg/325mg tablet PO PRN ×2 (05:45→22:10)
[2020-09-02 06:00] VITALS: BP 132/83
--- NOTE | 2020-09-02 06:52 | NUR ---
Patient in room ORTHO 4011A. I have received report from CARMEN Pederson and had the opportunity to ask questions and assume patient care.
[2020-09-02] MEDS: lactose-reduced food (Ensure Enlive) - 237ml bottle PO SCH ×3 (08:00→18:26)
[2020-09-02] MEDS: K and/or MAG REPLACEMENT MC SCH ×2 (08:00→20:00)
[2020-09-02] MEDS: sod chloride 0.9% 10ml flush syringe IV SCH ×4 (09:18→23:55)
[2020-09-02] MEDS: docusate sod 100mg capsule PO SCH ×2 (09:19→20:20)
[2020-09-02] MEDS: lactobacillus rhamnosus 10,000 MMU CELLS/CAPSULE PO SCH ×2 (09:19→20:20)
[2020-09-02] MEDS: dexamethasone 1mg tablet PO SCH (09:19)
[2020-09-02] MEDS: enoxaparin 40mg/0.4ml syringe SUBCUT SCH ×2 (09:21→20:21)
[2020-09-02] MEDS: magnesium hydroxide 30ml (MOM) UD suspension PO PRN (09:21)
[2020-09-02 10:00] VITALS: BP 130/80
[2020-09-02] MEDS ORDERED: magnesium 4gm in 100ml NS 100 ML IV PRN (10:05)
[2020-09-02] MEDS ORDERED: magnesium Cl slow-release 64mg tablet PO PRN (10:05)
[2020-09-02] MEDS ORDERED: potassium Cl 20 mEq SR tablet PO PRN ×2 (10:05)
[2020-09-02] MEDS ORDERED: potassium Cl 40MEQ/1/2NS 520ml 520 ML IV PRN (10:05)
--- NOTE | 2020-09-02 11:08 | NUR ---
Patient in room ORTHO 4011. I have received report from Rachel MORALES and had the opportunity to ask questions and assume patient care.
--- NOTE | 2020-09-02 11:19 | NUR ---
Problems reprioritized. Patient report given, questions answered & plan of care reviewed with CARMEN GARRETT ON TELE FLOOR.
[2020-09-02 15:00] VITALS: BP 121/74
--- NOTE | 2020-09-02 15:49 | NUR ---
Reassessment: Pt receiving regular diet and ONS. Pt PO intake is 50-75% average of meals with 100% ONS PO intake, continues meeting estimated energy needs. Pt last BM 08/22, remains constipated. Noted, pt receiving routine Colace and PRN milk of mag 09/02 per physician's recs. D/w dietary to send prune juice with next meal to assist with bowel regularity. Will continue to monitor. Recommend: 1. Continue regular diet; encourage PO 2. Ensure Enlive TIDWM; encourage PO 3. Prune juice with lunch 4. Routine bowel care 5. Scaled weights per rx Addendum: 09/02/20 at 15[address] by [address] Amended: Links added. Addendum: 09/02/20 at [address] agree with news department intern note
[2020-09-02 18:00] VITALS: BP 112/73
--- NOTE | 2020-09-02 18:09 | NUR ---
Problems reprioritized. Patient report given, questions answered & plan of care reviewed with Jenna MORALES.
[2020-09-02 22:00] VITALS: BP 133/82
[2020-09-02] MEDS: Melatonin 3mg tablet PO SCH (22:10)
[2020-09-03 02:00] VITALS: BP 139/87
[2020-09-03] MEDS: guaiFENesin/codeine phos 10ml UD oral syrup PO SCH ×5 (03:45→20:14)
--- NOTE | 2020-09-03 06:06 | NUR ---
Report given to Lili MORALES.
[2020-09-03 06:20] LABS: BASOPHILS % (AUTO) 0.2 % (0-1); EOSINOPHILS # (AUTO) 0.1 X10'3 (0-0.9); EOSINOPHILS % (AUTO) 0.4 % (0-6); HEMATOCRIT 38.5 % (35.0-45.0); HEMOGLOBIN 12.9 g/dl (12.0-16.0); LYMPHOCYTES # (AUTO) 0.5 X10'3 (1.1-4.8); LYMPHOCYTES % (AUTO) 3.8 % (21-51); MEAN CORPUSCULAR HEMOGLOBIN 30.6 PG (27.0-31.0); MEAN CORPUSCULAR HGB CONC 33.5 g/dL (33.0-36.5); MEAN CORPUSCULAR VOLUME 91.3 FL (78-98); MONOCYTES % (AUTO) 7.4 % (2-12); NEUTROPHILS # (AUTO) 12.1 X10'3 (1.8-7.7); NEUTROPHILS % (AUTO) 88.2 % (42-75); PLATELET COUNT 172 X10'3 (140-440); RED BLOOD COUNT 4.22 X10'6 (4.20-5.60); RED CELL DISTRIBUTION WIDTH 14.1 % (11.5-14.5); WHITE BLOOD COUNT 13.7 X10'3 (4.5-11.0)
[2020-09-03 06:38] LABS: ALANINE AMINOTRANSFERASE 93 U/L (12-78); ALBUMIN 2.6 G/DL (3.4-5.0); ALBUMIN/GLOBULIN RATIO 0.7 (1.1-1.5); ALKALINE PHOSPHATASE 113 IU/L (46-116); ANION GAP 6 (8-16); ASPARTATE AMINO TRANSFERASE 23 U/L (10-37); BILIRUBIN,TOTAL 0.5 MG/DL (0.1-1.0); BLOOD UREA NITROGEN 21 MG/DL (7-18); BUN/CREATININE RATIO 29.2 (6.6-38.0); CALCIUM 8.5 MG/DL (8.5-10.1); CHLORIDE 104 MMOL/L (99-107); CREATININE 0.72 MG/DL (0.40-0.90); GLUCOSE 145 MG/DL (70-104); MAGNESIUM 2.2 MG/DL (1.5-2.4); PHOSPHORUS 4.3 MG/DL (2.3-4.5); POTASSIUM 4.3 MMOL/L (3.5-5.1); SODIUM 140 MMOL/L (135-145); TOTAL CARBON DIOXIDE 29.6 MMOL/L (24-32); TOTAL PROTEIN 6.2 G/DL (6.4-8.2); eGFR 85 ML/MIN
[2020-09-03 07:00] VITALS: BP 120/86
--- NOTE | 2020-09-03 07:20 | NUR ---
Patient in room PCU 3019. I have received report from Jenna MORALES and had the opportunity to ask questions and assume patient care.
[2020-09-03] MEDS: K and/or MAG REPLACEMENT MC SCH ×2 (08:00→20:00)
[2020-09-03] MEDS: lactose-reduced food (Ensure Enlive) - 237ml bottle PO SCH ×3 (08:00→18:03)
[2020-09-03] MEDS: sod chloride 0.9% 10ml flush syringe IV SCH ×2 (09:08→16:47)
[2020-09-03] MEDS: benzonatate 100mg capsule PO SCH ×2 (09:08→16:47)
[2020-09-03] MEDS: enoxaparin 40mg/0.4ml syringe SUBCUT SCH ×2 (09:09→20:15)
[2020-09-03] MEDS: HYDROcodone/acetaminophen 5mg/325mg tablet PO PRN ×4 (09:09→22:14)
[2020-09-03] MEDS: dexamethasone 1mg tablet PO SCH (09:09)
[2020-09-03] MEDS: lactobacillus rhamnosus 10,000 MMU CELLS/CAPSULE PO SCH ×2 (09:10→20:14)
[2020-09-03] MEDS: docusate sod 100mg capsule PO SCH ×2 (09:10→20:14)
[2020-09-03 11:00] VITALS: BP 133/65
[2020-09-03] MEDS: magnesium hydroxide 30ml (MOM) UD suspension PO PRN (13:55)
[2020-09-03 15:00] VITALS: BP 129/78
[2020-09-03 18:00] VITALS: BP 134/80
--- NOTE | 2020-09-03 18:30 | NUR ---
Problems reprioritized. Patient report given, questions answered & plan of care reviewed with Kathleen freeman RN.
--- NOTE | 2020-09-03 18:35 | NUR ---
Patient in room PCU 3019. I have received report from TAMI Kearney RN and had the opportunity to ask questions and assume patient care.
[2020-09-03 22:00] VITALS: BP 146/78
[2020-09-03] MEDS: Melatonin 3mg tablet PO SCH (22:13)
[2020-09-04] MEDS: benzonatate 100mg capsule PO SCH ×4 (00:12→23:03)
[2020-09-04] MEDS: guaiFENesin/codeine phos 10ml UD oral syrup PO SCH ×7 (00:12→23:03)
[2020-09-04] MEDS: sod chloride 0.9% 10ml flush syringe IV SCH ×4 (00:16→23:03)
[2020-09-04 02:00] VITALS: BP 123/71
[2020-09-04 06:00] VITALS: BP 126/87
[2020-09-04 06:23] LABS: BASOPHILS % (AUTO) 0.2 % (0-1); EOSINOPHILS # (AUTO) 0.3 X10'3 (0-0.9); EOSINOPHILS % (AUTO) 2.1 % (0-6); HEMATOCRIT 35.8 % (35.0-45.0); LYMPHOCYTES # (AUTO) 0.7 X10'3 (1.1-4.8); LYMPHOCYTES % (AUTO) 5.5 % (21-51); MEAN CORPUSCULAR HEMOGLOBIN 30.8 PG (27.0-31.0); MEAN CORPUSCULAR HGB CONC 33.4 g/dL (33.0-36.5); MEAN CORPUSCULAR VOLUME 92.2 FL (78-98); MEAN PLATELET VOLUME 9.2 FL (7.4-10.4); MONOCYTES # (AUTO) 1.1 X10'3 (0-0.9); MONOCYTES % (AUTO) 9.1 % (2-12); NEUTROPHILS # (AUTO) 10.2 X10'3 (1.8-7.7); NEUTROPHILS % (AUTO) 83.1 % (42-75); PLATELET COUNT 162 X10'3 (140-440); RED BLOOD COUNT 3.88 X10'6 (4.20-5.60); RED CELL DISTRIBUTION WIDTH 14.1 % (11.5-14.5); WHITE BLOOD COUNT 12.3 X10'3 (4.5-11.0)
--- NOTE | 2020-09-04 06:27 | NUR ---
Problems reprioritized. Patient report given, questions answered & plan of care reviewed with LAVINIA MORALES.
--- NOTE | 2020-09-04 06:50 | NUR ---
report received by janis ball. patient sleeping at this time. easy to arouse. pt denies pain. pt denies any acute distress. pt on high flow at this time. skin color wnl. will assume care.
[2020-09-04 06:52] LABS: ALANINE AMINOTRANSFERASE 113 U/L (12-78); ALBUMIN 2.5 G/DL (3.4-5.0); ALBUMIN/GLOBULIN RATIO 0.8 (1.1-1.5); ALKALINE PHOSPHATASE 110 IU/L (46-116); ANION GAP 6 (8-16); ASPARTATE AMINO TRANSFERASE 31 U/L (10-37); BILIRUBIN,TOTAL 0.3 MG/DL (0.1-1.0); BLOOD UREA NITROGEN 21 MG/DL (7-18); BUN/CREATININE RATIO 29.6 (6.6-38.0); CALCIUM 8.4 MG/DL (8.5-10.1); CHLORIDE 104 MMOL/L (99-107); CREATININE 0.71 MG/DL (0.40-0.90); GLUCOSE 127 MG/DL (70-104); MAGNESIUM 2.3 MG/DL (1.5-2.4); PHOSPHORUS 3.5 MG/DL (2.3-4.5); POTASSIUM 4.1 MMOL/L (3.5-5.1); SODIUM 139 MMOL/L (135-145); TOTAL CARBON DIOXIDE 29.4 MMOL/L (24-32); TOTAL PROTEIN 5.8 G/DL (6.4-8.2); eGFR 86 ML/MIN
[2020-09-04] MEDS: lactobacillus rhamnosus 10,000 MMU CELLS/CAPSULE PO SCH ×2 (07:23→19:58)
[2020-09-04] MEDS: dexamethasone 1mg tablet PO SCH (07:23)
[2020-09-04] MEDS: docusate sod 100mg capsule PO SCH ×2 (07:23→19:58)
[2020-09-04] MEDS: enoxaparin 40mg/0.4ml syringe SUBCUT SCH ×2 (07:25→19:59)
[2020-09-04] MEDS: magnesium hydroxide 30ml (MOM) UD suspension PO PRN (07:25)
[2020-09-04] MEDS: HYDROcodone/acetaminophen 5mg/325mg tablet PO PRN ×2 (07:29→16:21)
[2020-09-04] MEDS: K and/or MAG REPLACEMENT MC SCH ×2 (07:31→19:58)
[2020-09-04] MEDS: lactose-reduced food (Ensure Enlive) - 237ml bottle PO SCH ×3 (07:42→18:00)
[2020-09-04 11:00] VITALS: BP 116/70
[2020-09-04 15:00] VITALS: BP 130/68
[2020-09-04 18:00] VITALS: BP 124/76
--- NOTE | 2020-09-04 18:00 | NUR ---
Patient in room PCU 3019. I have received report from Dmitriy MORALES and had the opportunity to ask questions and assume patient care.
--- NOTE | 2020-09-04 18:44 | NUR ---
report given to sourav ball. pt laying on bed with bed at lowest position . pt dnies any pain. change dressing today from picc line upper extremtity. pt skin color wnl. pt on o2 high flow nc at 12 liters. pt scds off for patient to eat dinner. pt tolerated well transfer from chair to bed. call álvarez within readch transfer care.
[2020-09-04] MEDS: Melatonin 3mg tablet PO SCH (21:00)
[2020-09-04 22:00] VITALS: BP 130/79
[2020-09-04] MEDS: bisacodyl 10mg suppository rectal RC PRN (22:16)
--- NOTE | 2020-09-04 23:37 | NUR ---
PAGER ID: [phone] MESSAGE: [phone] Nohelia Durán: Heart rhythm having a lot of ectopy, just had a 6 beat run of V tach, patient not symptomatic. Lizeth MORALES [id number]
[2020-09-05 02:00] VITALS: BP 135/82
[2020-09-05] MEDS: guaiFENesin/codeine phos 10ml UD oral syrup PO SCH ×5 (03:35→19:28)
[2020-09-05 04:05] LABS: BASOPHILS % (AUTO) 0.3 % (0-1); EOSINOPHILS # (AUTO) 0.3 X10'3 (0-0.9); EOSINOPHILS % (AUTO) 1.8 % (0-6); HEMATOCRIT 36.4 % (35.0-45.0); HEMOGLOBIN 12.1 g/dl (12.0-16.0); LYMPHOCYTES # (AUTO) 0.8 X10'3 (1.1-4.8); LYMPHOCYTES % (AUTO) 5.4 % (21-51); MEAN CORPUSCULAR HEMOGLOBIN 30.5 PG (27.0-31.0); MEAN CORPUSCULAR HGB CONC 33.4 g/dL (33.0-36.5); MEAN CORPUSCULAR VOLUME 91.4 FL (78-98); MEAN PLATELET VOLUME 8.5 FL (7.4-10.4); MONOCYTES # (AUTO) 1.2 X10'3 (0-0.9); MONOCYTES % (AUTO) 7.8 % (2-12); NEUTROPHILS # (AUTO) 13.1 X10'3 (1.8-7.7); NEUTROPHILS % (AUTO) 84.7 % (42-75); PLATELET COUNT 169 X10'3 (140-440); RED BLOOD COUNT 3.98 X10'6 (4.20-5.60); RED CELL DISTRIBUTION WIDTH 14.1 % (11.5-14.5); WHITE BLOOD COUNT 15.4 X10'3 (4.5-11.0)
[2020-09-05 04:16] LABS: ALANINE AMINOTRANSFERASE 103 U/L (12-78); ALBUMIN 2.6 G/DL (3.4-5.0); ALBUMIN/GLOBULIN RATIO 0.8 (1.1-1.5); ALKALINE PHOSPHATASE 105 IU/L (46-116); ANION GAP 4 (8-16); ASPARTATE AMINO TRANSFERASE 23 U/L (10-37); BILIRUBIN,TOTAL 0.3 MG/DL (0.1-1.0); BLOOD UREA NITROGEN 20 MG/DL (7-18); BUN/CREATININE RATIO 27.8 (6.6-38.0); CALCIUM 8.3 MG/DL (8.5-10.1); CHLORIDE 104 MMOL/L (99-107); CREATININE 0.72 MG/DL (0.40-0.90); GLUCOSE 126 MG/DL (70-104); MAGNESIUM 2.3 MG/DL (1.5-2.4); PHOSPHORUS 3.7 MG/DL (2.3-4.5); POTASSIUM 4.1 MMOL/L (3.5-5.1); SODIUM 140 MMOL/L (135-145); TOTAL CARBON DIOXIDE 32.2 MMOL/L (24-32); TOTAL PROTEIN 5.9 G/DL (6.4-8.2); eGFR 85 ML/MIN
--- NOTE | 2020-09-05 05:00 | NUR ---
No call was received from MD Wright about vtach earlier in shift, patient is stable.
[2020-09-05 06:00] VITALS: BP 107/60
--- NOTE | 2020-09-05 06:52 | NUR ---
Problems reprioritized. Patient report given, questions answered & plan of care reviewed with Altagracia MORALES.
[2020-09-05] MEDS: sod chloride 0.9% 10ml flush syringe IV SCH ×2 (08:00→16:28)
[2020-09-05] MEDS: K and/or MAG REPLACEMENT MC SCH ×2 (08:00→19:40)
[2020-09-05] MEDS: docusate sod 100mg capsule PO SCH ×2 (08:40→19:29)
[2020-09-05] MEDS: lactobacillus rhamnosus 10,000 MMU CELLS/CAPSULE PO SCH ×2 (08:40→19:28)
[2020-09-05] MEDS: benzonatate 100mg capsule PO SCH ×2 (08:40→16:28)
[2020-09-05] MEDS: lactose-reduced food (Ensure Enlive) - 237ml bottle PO SCH ×3 (08:41→18:00)
[2020-09-05] MEDS: dexamethasone 1mg tablet PO SCH (08:41)
[2020-09-05] MEDS: enoxaparin 40mg/0.4ml syringe SUBCUT SCH ×2 (08:42→19:28)
--- NOTE | 2020-09-05 10:44 | NUR ---
Reassessment: Pt receiving regular diet and ONS. Pt PO intake is 75-100% average of meals with 100% intake of Ensure Enlive, continues meeting estimated energy needs. Pt last was BM 08/22 and was constipated for several days, finally had two BM 09/04 after receiving milk of mag and dulcolax, receiving colace daily. Recommend: 1. Continue regular diet; encourage PO 2. Ensure Enlive TIDWM; encourage PO 3. Prune juice with lunch 4. Routine bowel care 5. Scaled weights per rx Addendum: 09/05/20 at [address] Amended: Links added.
[2020-09-05 11:00] VITALS: BP 121/60
--- NOTE | 2020-09-05 13:30 | NUR ---
Problems reprioritized. Patient report given, questions answered & plan of care reviewed with JEANETTE MORALES. PT UP IN CHAIR. CALL LIGHT IN REACH Addendum: 09/05/20 at 1331 by Joyce Starr RN Amended: Links added.
[2020-09-05 15:00] VITALS: BP 152/80
--- NOTE | 2020-09-05 16:10 | NUR ---
patient sleeping at this time. no distress noted. skin color wnl . pt on o2 high flow at 12 liters. will cont to monitor at this time.
[2020-09-05] MEDS: HYDROcodone/acetaminophen 5mg/325mg tablet PO PRN ×2 (16:28→21:05)
[2020-09-05 18:00] VITALS: BP 102/73
--- NOTE | 2020-09-05 18:17 | NUR ---
report given to sai ball. pt alert an orientated x4. pt dnies nay acute distreass. pt skin coor wnl. pt able to move all extremties. pt o2 nc high flow at 12 l. will transfer care.
[2020-09-05] MEDS: Melatonin 3mg tablet PO SCH (21:06)
[2020-09-05 22:00] VITALS: BP 113/71
[2020-09-06] MEDS: benzonatate 100mg capsule PO SCH ×4 (00:11→23:50)
[2020-09-06] MEDS: guaiFENesin/codeine phos 10ml UD oral syrup PO SCH ×7 (00:11→23:50)
[2020-09-06] MEDS: sod chloride 0.9% 10ml flush syringe IV SCH ×4 (00:12→23:50)
[2020-09-06 02:00] VITALS: BP 127/89
[2020-09-06 04:26] LABS: BASOPHILS % (AUTO) 0.2 % (0-1); EOSINOPHILS # (AUTO) 0.3 X10'3 (0-0.9); EOSINOPHILS % (AUTO) 2.7 % (0-6); HEMATOCRIT 35.1 % (35.0-45.0); HEMOGLOBIN 11.6 g/dl (12.0-16.0); LYMPHOCYTES # (AUTO) 0.6 X10'3 (1.1-4.8); LYMPHOCYTES % (AUTO) 5.6 % (21-51); MEAN CORPUSCULAR HEMOGLOBIN 30.9 PG (27.0-31.0); MEAN CORPUSCULAR HGB CONC 33.2 g/dL (33.0-36.5); MEAN CORPUSCULAR VOLUME 93.2 FL (78-98); MEAN PLATELET VOLUME 8.3 FL (7.4-10.4); MONOCYTES # (AUTO) 0.8 X10'3 (0-0.9); MONOCYTES % (AUTO) 7.5 % (2-12); NEUTROPHILS # (AUTO) 8.5 X10'3 (1.8-7.7); PLATELET COUNT 161 X10'3 (140-440); RED BLOOD COUNT 3.76 X10'6 (4.20-5.60); RED CELL DISTRIBUTION WIDTH 14.4 % (11.5-14.5); WHITE BLOOD COUNT 10.1 X10'3 (4.5-11.0)
[2020-09-06 04:38] LABS: ALANINE AMINOTRANSFERASE 83 U/L (12-78); ALBUMIN 2.5 G/DL (3.4-5.0); ALBUMIN/GLOBULIN RATIO 0.8 (1.1-1.5); ALKALINE PHOSPHATASE 94 IU/L (46-116); ANION GAP 4 (8-16); ASPARTATE AMINO TRANSFERASE 18 U/L (10-37); BILIRUBIN,TOTAL 0.4 MG/DL (0.1-1.0); BLOOD UREA NITROGEN 16 MG/DL (7-18); BUN/CREATININE RATIO 26.7 (6.6-38.0); CALCIUM 8.3 MG/DL (8.5-10.1); CHLORIDE 106 MMOL/L (99-107); GLUCOSE 128 MG/DL (70-104); MAGNESIUM 2.4 MG/DL (1.5-2.4); PHOSPHORUS 4.3 MG/DL (2.3-4.5); POTASSIUM 4.3 MMOL/L (3.5-5.1); SODIUM 140 MMOL/L (135-145); TOTAL CARBON DIOXIDE 29.8 MMOL/L (24-32); TOTAL PROTEIN 5.8 G/DL (6.4-8.2); eGFR > 90 ML/MIN
[2020-09-06 06:00] VITALS: BP 125/76
--- NOTE | 2020-09-06 06:02 | NUR ---
Problems reprioritized. Patient report given, questions answered & plan of care reviewed with CARMEN Izaguirre.
--- NOTE | 2020-09-06 06:50 | NUR ---
report received by sai ball. pt laying on bed with bed at lowest position. pt alert an orientated x3. pt on high flow 12 liters tolerating well. pt skin color wnl. pt able to move all extremties. will continue to monitor. call álvarez withnn reach safety prec i n place will assume care.
[2020-09-06] MEDS: lactobacillus rhamnosus 10,000 MMU CELLS/CAPSULE PO SCH ×2 (07:31→20:41)
[2020-09-06] MEDS: enoxaparin 40mg/0.4ml syringe SUBCUT SCH ×2 (07:31→20:46)
[2020-09-06] MEDS: dexamethasone 1mg tablet PO SCH (07:31)
[2020-09-06] MEDS: docusate sod 100mg capsule PO SCH ×2 (07:31→20:39)
[2020-09-06] MEDS: HYDROcodone/acetaminophen 5mg/325mg tablet PO PRN ×3 (07:32→21:48)
[2020-09-06] MEDS: lactose-reduced food (Ensure Enlive) - 237ml bottle PO SCH ×3 (07:33→18:21)
[2020-09-06] MEDS: K and/or MAG REPLACEMENT MC SCH ×2 (07:34→19:29)
[2020-09-06 11:00] VITALS: BP 117/75
[2020-09-06 17:43] VITALS: BP 132/73
[2020-09-06 18:00] VITALS: BP 118/68
--- NOTE | 2020-09-06 18:13 | NUR ---
report given to laurie ball. pt alert and orinyayed x3. pt dnies any acute distress. pt skin color wnl. pt on high flow 10 l. will transfer care.
[2020-09-06] MEDS: Melatonin 3mg tablet PO SCH (21:48)
[2020-09-06 22:00] VITALS: BP 113/75
[2020-09-07 02:00] VITALS: BP 124/75
[2020-09-07] MEDS: guaiFENesin/codeine phos 10ml UD oral syrup PO SCH ×5 (03:45→20:58)
[2020-09-07 04:12] LABS: BASOPHILS % (AUTO) 0.3 % (0-1); EOSINOPHILS # (AUTO) 0.4 X10'3 (0-0.9); EOSINOPHILS % (AUTO) 4.9 % (0-6); HEMATOCRIT 33.4 % (35.0-45.0); HEMOGLOBIN 11.1 g/dl (12.0-16.0); LYMPHOCYTES # (AUTO) 0.8 X10'3 (1.1-4.8); LYMPHOCYTES % (AUTO) 8.7 % (21-51); MEAN CORPUSCULAR HEMOGLOBIN 30.8 PG (27.0-31.0); MEAN CORPUSCULAR HGB CONC 33.3 g/dL (33.0-36.5); MEAN CORPUSCULAR VOLUME 92.6 FL (78-98); MEAN PLATELET VOLUME 8.4 FL (7.4-10.4); MONOCYTES # (AUTO) 0.5 X10'3 (0-0.9); MONOCYTES % (AUTO) 5.7 % (2-12); NEUTROPHILS # (AUTO) 7.3 X10'3 (1.8-7.7); NEUTROPHILS % (AUTO) 80.4 % (42-75); PLATELET COUNT 153 X10'3 (140-440); RED CELL DISTRIBUTION WIDTH 14.6 % (11.5-14.5); WHITE BLOOD COUNT 9.1 X10'3 (4.5-11.0)
[2020-09-07 04:26] LABS: ALANINE AMINOTRANSFERASE 81 U/L (12-78); ALBUMIN 2.5 G/DL (3.4-5.0); ALBUMIN/GLOBULIN RATIO 0.8 (1.1-1.5); ALKALINE PHOSPHATASE 95 IU/L (46-116); ANION GAP 6 (8-16); ASPARTATE AMINO TRANSFERASE 23 U/L (10-37); BILIRUBIN,TOTAL 0.4 MG/DL (0.1-1.0); BLOOD UREA NITROGEN 19 MG/DL (7-18); BUN/CREATININE RATIO 32.2 (6.6-38.0); CALCIUM 8.5 MG/DL (8.5-10.1); CHLORIDE 106 MMOL/L (99-107); CREATININE 0.59 MG/DL (0.40-0.90); GLUCOSE 116 MG/DL (70-104); MAGNESIUM 2.2 MG/DL (1.5-2.4); PHOSPHORUS 4.1 MG/DL (2.3-4.5); POTASSIUM 4.3 MMOL/L (3.5-5.1); SODIUM 140 MMOL/L (135-145); TOTAL CARBON DIOXIDE 28.5 MMOL/L (24-32); TOTAL PROTEIN 5.8 G/DL (6.4-8.2); eGFR > 90 ML/MIN
[2020-09-07 06:00] VITALS: BP 120/78
--- NOTE | 2020-09-07 06:00 | NUR ---
report received by laurie ball. pt alert an orientated x3. pt dnes any acute distress. pt on o2 10 l high flow. pt able to move all extremties. pt removed scds for awhile because she was to hot. explained the importance and will be working with her. will assume care.
[2020-09-07] MEDS: K and/or MAG REPLACEMENT MC SCH ×2 (07:03→20:00)
[2020-09-07] MEDS: dexamethasone 1mg tablet PO SCH (08:28)
[2020-09-07] MEDS: lactobacillus rhamnosus 10,000 MMU CELLS/CAPSULE PO SCH ×2 (08:28→20:58)
[2020-09-07] MEDS: HYDROcodone/acetaminophen 5mg/325mg tablet PO PRN ×2 (08:28→15:21)
[2020-09-07] MEDS: benzonatate 100mg capsule PO SCH ×2 (08:28→15:18)
[2020-09-07] MEDS: docusate sod 100mg capsule PO SCH ×2 (08:28→20:58)
[2020-09-07] MEDS: lactose-reduced food (Ensure Enlive) - 237ml bottle PO SCH ×4 (08:29→19:00)
[2020-09-07] MEDS: enoxaparin 40mg/0.4ml syringe SUBCUT SCH ×2 (08:29→21:03)
[2020-09-07] MEDS: sod chloride 0.9% 10ml flush syringe IV SCH ×2 (08:30→15:22)
[2020-09-07 11:00] VITALS: BP 120/67
[2020-09-07 15:00] VITALS: BP 132/85
[2020-09-07] MEDS: magnesium hydroxide 30ml (MOM) UD suspension PO PRN (15:18)
[2020-09-07 18:00] VITALS: BP 116/76
--- NOTE | 2020-09-07 18:32 | NUR ---
report given to amy ball. pt alert and orientated x3. pt dnies pain. pt on o2 8 l. no distress. will transfer care.
[2020-09-07] MEDS: Melatonin 3mg tablet PO SCH (20:58)
[2020-09-07] MEDS: bisacodyl 10mg suppository rectal RC PRN (20:58)
[2020-09-07 22:00] VITALS: BP 110/76
[2020-09-08] MEDS: benzonatate 100mg capsule PO SCH ×2 (01:54→09:21)
[2020-09-08] MEDS: guaiFENesin/codeine phos 10ml UD oral syrup PO SCH ×3 (01:54→09:20)
[2020-09-08] MEDS: sod chloride 0.9% 10ml flush syringe IV SCH ×4 (01:55→23:55)
[2020-09-08 02:00] VITALS: BP 115/71
[2020-09-08 06:30] VITALS: BP 124/74
--- NOTE | 2020-09-08 06:30 | NUR ---
Patient in room PCU 3019. I have received report from CARMEN Basurto and had the opportunity to ask questions and assume patient care.
--- NOTE | 2020-09-08 06:34 | NUR ---
Problems reprioritized. Patient report given, questions answered & plan of care reviewed with CARMEN Acosta.
[2020-09-08 07:06] LABS: ALANINE AMINOTRANSFERASE 86 U/L (12-78); ALBUMIN 2.7 G/DL (3.4-5.0); ALBUMIN/GLOBULIN RATIO 0.7 (1.1-1.5); ANION GAP 7 (8-16); ASPARTATE AMINO TRANSFERASE 25 U/L (10-37); BASOPHILS % (AUTO) 0.4 % (0-1); BILIRUBIN,TOTAL 0.4 MG/DL (0.1-1.0); BLOOD UREA NITROGEN 16 MG/DL (7-18); BUN/CREATININE RATIO 25.8 (6.6-38.0); CALCIUM 8.7 MG/DL (8.5-10.1); CHLORIDE 105 MMOL/L (99-107); CREATININE 0.62 MG/DL (0.40-0.90); EOSINOPHILS # (AUTO) 0.4 X10'3 (0-0.9); EOSINOPHILS % (AUTO) 4.2 % (0-6); GLUCOSE 123 MG/DL (70-104); HEMATOCRIT 36.6 % (35.0-45.0); HEMOGLOBIN 12.4 g/dl (12.0-16.0); LYMPHOCYTES # (AUTO) 0.8 X10'3 (1.1-4.8); LYMPHOCYTES % (AUTO) 8.4 % (21-51); MAGNESIUM 2.5 MG/DL (1.5-2.4); MEAN CORPUSCULAR HEMOGLOBIN 31.6 PG (27.0-31.0); MEAN CORPUSCULAR HGB CONC 33.8 g/dL (33.0-36.5); MEAN CORPUSCULAR VOLUME 93.4 FL (78-98); MEAN PLATELET VOLUME 8.7 FL (7.4-10.4); MONOCYTES # (AUTO) 0.6 X10'3 (0-0.9); NEUTROPHILS # (AUTO) 7.2 X10'3 (1.8-7.7); PHOSPHORUS 3.9 MG/DL (2.3-4.5); PLATELET COUNT 184 X10'3 (140-440); RED BLOOD COUNT 3.92 X10'6 (4.20-5.60); RED CELL DISTRIBUTION WIDTH 14.8 % (11.5-14.5); SODIUM 141 MMOL/L (135-145); TOTAL CARBON DIOXIDE 28.8 MMOL/L (24-32); TOTAL PROTEIN 6.4 G/DL (6.4-8.2); eGFR > 90 ML/MIN
[2020-09-08 07:18] LABS: ALKALINE PHOSPHATASE 102 IU/L (46-116)
[2020-09-08] MEDS: enoxaparin 40mg/0.4ml syringe SUBCUT SCH ×2 (09:20→19:27)
[2020-09-08] MEDS: dexamethasone 1mg tablet PO SCH (09:21)
[2020-09-08] MEDS: docusate sod 100mg capsule PO SCH ×2 (09:21→19:28)
[2020-09-08] MEDS: lactobacillus rhamnosus 10,000 MMU CELLS/CAPSULE PO SCH ×2 (09:21→19:27)
[2020-09-08] MEDS ORDERED: benzonatate 100mg capsule PO PRN (10:00)
[2020-09-08] MEDS ORDERED: guaiFENesin/codeine phos 10ml UD oral syrup PO PRN (10:00)
[2020-09-08] MEDS: K and/or MAG REPLACEMENT MC SCH ×2 (10:05→20:00)
[2020-09-08 11:00] VITALS: BP 118/77
[2020-09-08] MEDS: HYDROcodone/acetaminophen 5mg/325mg tablet PO PRN ×2 (11:16→22:24)
[2020-09-08] MEDS: lactose-reduced food (Ensure Enlive) - 237ml bottle PO SCH ×2 (13:23→18:07)
[2020-09-08 15:00] VITALS: BP 103/61
[2020-09-08 18:00] VITALS: BP 122/77
--- NOTE | 2020-09-08 18:20 | NUR ---
Problems reprioritized. Patient report given, questions answered & plan of care reviewed with CARMEN Basurto.
[2020-09-08 22:00] VITALS: BP 112/73
[2020-09-08] MEDS: Melatonin 3mg tablet PO SCH (22:24)
[2020-09-09 02:00] VITALS: BP 127/69
[2020-09-09 06:00] VITALS: BP 116/76
--- NOTE | 2020-09-09 06:30 | NUR ---
Problems reprioritized. Patient report given, questions answered & plan of care reviewed with CARMEN Castañeda. Patient stable at transfer of care.
[2020-09-09] MEDS: dexamethasone 1mg tablet PO SCH (07:52)
[2020-09-09] MEDS: docusate sod 100mg capsule PO SCH ×2 (07:52→20:12)
[2020-09-09] MEDS: lactobacillus rhamnosus 10,000 MMU CELLS/CAPSULE PO SCH ×2 (07:52→20:12)
[2020-09-09] MEDS: enoxaparin 40mg/0.4ml syringe SUBCUT SCH ×2 (07:53→20:13)
[2020-09-09] MEDS: K and/or MAG REPLACEMENT MC SCH ×2 (08:00→20:00)
[2020-09-09] MEDS ORDERED: ALBU8HFA PO (09:23)
[2020-09-09] MEDS ORDERED: BENZ-16 PO (09:23)
[2020-09-09] MEDS ORDERED: HYDR-3964 PO (09:23)
[2020-09-09] MEDS: HYDROcodone/acetaminophen 5mg/325mg tablet PO PRN ×2 (09:29→20:53)
--- NOTE | 2020-09-09 09:58 | NUR ---
O2 Sat at rest on room air:__87_% If below 89%: Recovery O2 Sat at rest on ___LPM: 4__%:__92_% via Nasal canula (mask/nasal cannula, etc..) No further documentation is necessary. If O2 Sat did not drop below 89% on room air,ambulate patient on room air. O2 Sat while ambulating on room air:___% Recovery O2 Sat while ambulating on ___LPM:___% No further documentation is necessary. If patient does not drop below 89% while ambulating, he/she does not qualify for home O2.
[2020-09-09 11:00] VITALS: BP 123/80
[2020-09-09 15:00] VITALS: BP 139/97
[2020-09-09] MEDS: lactose-reduced food (Ensure Enlive) - 237ml bottle PO SCH (18:00)
[2020-09-09] MEDS: sod chloride 0.9% 10ml flush syringe IV SCH (18:00)
--- NOTE | 2020-09-09 18:20 | NUR ---
sbar report given to luis ball , emar reviewed, questions answered.
[2020-09-09 18:40] VITALS: BP 133/96
[2020-09-09] MEDS: Melatonin 3mg tablet PO SCH (20:52)
[2020-09-09 22:00] VITALS: BP 109/68
[2020-09-10 02:00] VITALS: BP 116/75
[2020-09-10 06:00] VITALS: BP 106/64
--- NOTE | 2020-09-10 06:49 | NUR ---
Problems reprioritized. Patient report given, questions answered & plan of care reviewed with NATALIE. Addendum: 09/10/20 at 0650 by Seng Ramos RN Amended: Links added.
[2020-09-10] MEDS: sod chloride 0.9% 10ml flush syringe IV SCH ×2 (08:00)
[2020-09-10] MEDS: K and/or MAG REPLACEMENT MC SCH (08:00)
[2020-09-10] MEDS: dexamethasone 1mg tablet PO SCH (08:07)
[2020-09-10] MEDS: lactobacillus rhamnosus 10,000 MMU CELLS/CAPSULE PO SCH (08:07)
[2020-09-10] MEDS: docusate sod 100mg capsule PO SCH (08:07)
[2020-09-10] MEDS: enoxaparin 40mg/0.4ml syringe SUBCUT SCH (08:08)
[2020-09-10] MEDS: lactose-reduced food (Ensure Enlive) - 237ml bottle PO SCH ×2 (08:08→13:00)
[2020-09-10] MEDS: ALBUTEROL INHALER 1 PUFF/90 MCG INHALER IH PRN (08:14)
[2020-09-10 11:00] VITALS: BP 144/84
== END 2020-09-10 15:34 | disposition home health service (06) | DRG 177 ==
LOC: ER 12:38 → ED HOLD 18:42 → ORTHO 4S 08-15 11:30 → PCU 3S 09-02 11:30
PROVIDERS: ADMIT Family Medicine; ATTEND Family Medicine
PROC: XW033E5 Introduction of Remdesivir Anti-infective into Peripheral Vein, Percutaneous Approach, New Technology Group 5 (ICD-10-PCS; 2020-08-14)
PROC: 5A0935A Assistance with Respiratory Ventilation, Less than 24 Consecutive Hours, High Flow/Velocity Cannula (ICD-10-PCS; principal; 2020-08-15)
PROC: 5A0935A Assistance with Respiratory Ventilation, Less than 24 Consecutive Hours, High Flow/Velocity Cannula (ICD-10-PCS; 2020-08-16)
PROC: 5A0935A Assistance with Respiratory Ventilation, Less than 24 Consecutive Hours, High Flow/Velocity Cannula (ICD-10-PCS; 2020-08-17)
PROC: 5A0935A Assistance with Respiratory Ventilation, Less than 24 Consecutive Hours, High Flow/Velocity Cannula (ICD-10-PCS; 2020-08-18)
PROC: B32T1ZZ Computerized Tomography (CT Scan) of Left Pulmonary Artery using Low Osmolar Contrast (ICD-10-PCS; 2020-08-18)
PROC: B3201ZZ Computerized Tomography (CT Scan) of Thoracic Aorta using Low Osmolar Contrast (ICD-10-PCS; 2020-08-18)
PROC: B32S1ZZ Computerized Tomography (CT Scan) of Right Pulmonary Artery using Low Osmolar Contrast (ICD-10-PCS; 2020-08-18)
PROC: 5A0935A Assistance with Respiratory Ventilation, Less than 24 Consecutive Hours, High Flow/Velocity Cannula (ICD-10-PCS; 2020-08-19)
PROC: 5A0935A Assistance with Respiratory Ventilation, Less than 24 Consecutive Hours, High Flow/Velocity Cannula (ICD-10-PCS; 2020-08-20)
PROC: 5A09557 Assistance with Respiratory Ventilation, Greater than 96 Consecutive Hours, Continuous Positive Airway Pressure (ICD-10-PCS; 2020-08-21)
PROC: 02HV33Z Insertion of Infusion Device into Superior Vena Cava, Percutaneous Approach (ICD-10-PCS; 2020-08-23)
PROC: B548ZZA Ultrasonography of Superior Vena Cava, Guidance (ICD-10-PCS; 2020-08-23)
DX: U07.1 COVID-19 (principal); J12.82 Pneumonia due to coronavirus disease 2019; J96.01 Acute respiratory failure with hypoxia; N39.0 Urinary tract infection, site not specified; R04.2 Hemoptysis; Z66 Do not resuscitate; E66.01 Morbid (severe) obesity due to excess calories; B96.4 Proteus (mirabilis) (morganii) as the cause of diseases classified elsewhere; R00.0 Tachycardia, unspecified; J45.909 Unspecified asthma, uncomplicated; Z68.29 Body mass index [BMI] 29.0-29.9, adult; Z91.041 Radiographic dye allergy status; Z88.8 Allergy status to other drugs, medicaments and biological substances
CPT/HCPCS: 36415; 36573; 36600; 71045; 71275; 80053; 80061; 81001; 82728; 82803; 82948; 83036; 83605; 83615; 83735; 84100; 84134; 84145; 84478; 84484; 85018; 85025; 85379; 86140; 87040; 87077; 87081; 87088; 87186; 87502; 87503; 93005; 94660; 94760; 96374; 97110; 97116; 97161; 97530; 97535; 99285; G0378; J0360; J0696; J1100; J1644; J1650; J1815; J1940; J2060; J2920; J2930; J7030; J7512; J8540; Q0163; Q9967